=== PATIENT | male | born 1930 | race Caucasian/White ===

== ENCOUNTER 2018-07-04 10:18 | Inpatient (IN) | payer MEDICARE, MEDICAID ==
--- NOTE | 2018-07-04 10:37 | ED Physician Chart ---
ED Chief Complaint/HPI - Patient Information Date Seen:: 07/04/18 Time Seen:: 10:15 Chief Complaint:: Agitation History of Present Illness:: onset x 2 days of agitation and aggressive behavior; no report of trauma, LOC, ALOC, AMS, SIs, H/As, S/T, neck pain, C/P, SOB, Abd. Pain, A/N/V/D/C, fever, chills, or urinary s/s Historian:: Patient, EMS Review:: Nurse's Note Reviewed, Old Chart Reviewed, EMS run form Reviewed ED Review of Systems - Review of Systems General/Constitutional: No fever, No chills, No weight loss, No weakness, No diaphoresis, No edema, No loss of appetite Skin: No skin lesions, No rash, No bruising Head: No headache, No light-headedness Eyes: No loss of vision, No pain, No diplopia ENT: No earache, No nasal drainage, No sore throat, No tinnitus Neck: No neck pain, No swelling, No thyromegaly, No stiffness, No mass noted Cardio Vascular: No chest pain, No palpitations, No PND, No orthopnea, No edema Pulmonary: No SOB, No cough, No sputum, No wheezing GI: No nausea, No vomiting, No diarrhea, No pain, No melena, No hematochezia, No constipation, No hematemesis G/U: No dysuria, No frequency, No hematuria, No nacturia Musculoskeletal: No bone or joint pain, No back pain, No muscle pain Endocrine: No polyuria, No polydipsia Psychiatric: Prior psych history, Depression, Anxiety, No suicidal ideation, No homicidal ideation, No auditory hallucination, No visual hallucination Hematopoietic: No bruising, No lymphadenopathy Allergic/Immuno: No urticaria, No angioedema Neurological: No syncope, No focal symptoms, No weakness, No paresthesia, No headache, No seizure, No dizziness, No confusion, No vertigo ED Past Medical History - Past Medical History Obtainable: Yes Past Medical History: HTN, Dyslipidemia Family History: HTN Social History: Non Smoker, No Alcohol, No Drug Use, Single, Care Facility Surgical History: None Psychiatricy History: Depression, Bipolar Medication: Reviewed Family Medical History - Family Member Mother History Unknown: Yes ED Physical Exam - Physical Examination General/Constitutional: Awake, Well-developed, well-nourished, Alert, No distress, GCS 15, Non-toxic appearing, Ambulatory Head: Atraumatic Eyes: Lids, conjuctiva normal, PERRL, EOMI Skin: Nl inspection, No rash, No skin lesions, No ecchymosis, Well hydrated, No lymphadenopathy ENMT: External ears, nose nl, TM canals nl, Nasal exam nl, Lips, teeth, gums nl , Oropharynx nl, Tonsils nl Neck: Nontender, Full ROM w/o pain, No JVD, No nuchal rigidity, No bruit, No mass, No stridor Respiratory: Nl effort/Exclusion, Clear to Auscultation, No Wheeze/Rhonchi/Rales Cardio Vascular: RRR, No murmur, gallop, rubs, NL S1 S2, Carotid/Femoral/Distal pulses equal bilaterally GI: No tenderness/rebounding/guarding, No organomegaly, No hernia, Normal BS's, Nondistended, No mass/bruits, No McBurney tenderness : No CVA tenderness Extremities: No tenderness or effusion, Full ROM, normal strength in all extremities, No edema, Normal digits & nails Neuro/Psych: Alert/oriented, DTR's symmetric, Normal sensory exam, Normal motor strength, Judgement/insight normal, Mood normal, Normal gait, No focal deficits Other Neuro/Psych comments:: + Psychomotor Agitation; no SIs; Mood/Affect: Stable Misc: Normal back, No paraspinal tenderness ED Labs/Radiology/EKG Results - Lab Results Comments:: Reviewed - EKG Interpretations EKG Time:: 10:57 Rate & Rhythm: 72; SA Comments:: non-specific st-t changes ED Septic Shock - . Is Septic Shock (SBP<90, OR Lactate>4 mmol\L) present?: No ED Reassessment (Disposition) - Reassessment Reassessment Condition:: Improved - Diagnosis Diagnosis:: Dx: Agitation; Medical Clearance; Hypercalcemia; Bipolar Disorder - Aftercare/Follow up Instructions Aftercare/Follow-Up Instructions:: Counseled pt regarding lab results/diagnosis & need follow up, Counseled pt & family regarding lab results/diagnosis & need follow up - Patient Disposition Discharge/Transfer:: Acute Care w/in this hosp Admitted to:: [facility] Condition at Disposition:: Stable, Improved
[2018-07-04 11:13] LABS: % BASOPHILS 0.9 % (0.0-2.0); % EOSINOPHILS 5.9 % (0.0-5.0); % LYMPHOCYTES 30.5 % (20.0-50.0); % MONOCYTES 9.6 % (2.0-10.0); % NEUTROPHILS 53.1 % (40.0-80.0); BASOPHILE ABSOLUTE 0.1 Th/cumm (0-0.2); EOSINOPHILE ABSOLUTE 0.4 Th/cmm (0.1-0.4); HEMATOCRIT 44.7 % (41.0-60); HEMOGLOBIN 14.9 gm/dL (12-16); MEAN CELL VOLUME 82.7 fl (80-99); MEAN CORPUSCULAR HEMOGLOBIN 27.6 pg (27.0-31.0); MEAN CORPUSCULAR HGB CONC 33.3 pg (28.0-36.0); MEAN PLATELET VOLUME 9.7 fl; MONOCYTE ABSOLUTE 0.6 Th/cmm (0.3-1.0); NEUTROPHILE ABSOLUTE 3.6 Th/cmm (1.8-8.0); PLATELET COUNT 205 Th/cmm (150-400); RED CELL DISTRIBUTION WIDTH 13.6 % (11.5-20.0); WHITE BLOOD COUNT 6.7 Th/cmm (4.8-10.8)
[2018-07-04 11:23] LABS: ALB/GLOB RATIO 1.3 (1.0-1.8); ALBUMIN 3.6 gm/dL (4.2-5.5); ALKALINE PHOSPHATASE 51 U/L (34-104); ANION GAP 9.6 (7.0-16.0); BILIRUBIN,TOTAL 0.8 mg/dL (0.3-1.0); BUN - UREA NITROGEN 16 mg/dL (7-25); CALCIUM SERUM 10.4 mg/dL (8.6-10.3); CARBON DIOXIDE 24.5 mEq/L (21.0-31.0); CHLORIDE 106 mEq/L (98-107); CHOLESTEROL 146 mg/dL (<200); CREATININE - SERUM 0.7 mg/dL (0.7-1.3); GLUCOSE 103 mg/dL (70-105); HDL -HIGH DENSITY LIPOPROTEIN 50 mg/dL (23-92); POTASSIUM SERUM 4.1 mEq/L (3.5-5.1); SALICYLATES (ASPIRIN) < 25.0 mg/L (30.0-100.0); SGOT 10 U/L (13-39); SGPT/ALT 11 U/L (7-52); SODIUM SERUM 136 mEq/L (136-145); TOTAL PROTEIN,SERUM 6.4 gm/dL (6.0-8.3); TRIGLYCERIDES 72 mg/dL (<150)
[2018-07-04 11:34] LABS: URINE SOURCE CLEAN C
[2018-07-04 11:37] LABS: URINE BILIRUBIN NEGATIVE (NEGATIVE); URINE BLOOD NEGATIVE (NEGATIVE); URINE GLUCOSE (UA) NEGATIVE (NEGATIVE); URINE KETONE NEGATIVE (NEGATIVE); URINE LEUKOCYTE ESTERASE NEGATIVE (NEGATIVE); URINE NITRATE NEGATIVE (NEGATIVE); URINE PROTEIN NEGATIVE (NEGATIVE); URINE UROBILINOGEN 0.2 E.U./dL (0.2 - 1.0)
[2018-07-04 11:46] LABS: ACETAMINOPHEN < 10.0 ug/mL (10.0-30.0)
[2018-07-04 11:48] LABS: URINE CLARITY CLEAR (CLEAR); URINE COLOR YELLOW
[2018-07-04 11:50] LABS: AMPHETAMINE URINE NEGATIVE (NEGATIVE); BARBITURATES URINE NEGATIVE (NEGATIVE); BENZODIAZEPINES QUAL URINE NEGATIVE (NEGATIVE); CANNABINOID THC NEGATIVE (NEGATIVE); COCAINE METABOLITE QUAL URINE NEGATIVE (NEGATIVE); METHADONE URINE NEGATIVE (NEGATIVE); METHAMPHETAMINES QUAL URINE NEGATIVE (NEGATIVE); OPIATES (MORPHINE) QUAL. URINE NEGATIVE (NEGATIVE); PHENCYCLIDINE (PCP) URINE NEGATIVE (NEGATIVE); TRICYCLICS (TCA) QUAL. URINE POSITIVE (NEGATIVE); URINE MICROSCOPIC INDICATED? NO
--- NOTE | 2018-07-04 15:36 | History and Physical ---
History of Present Illness - HPI Chief Complaint: agitation HPI: This is a 88-year old male who is a intermediate resident admitted to the [facility] due to agitation. Vital Signs: Last Vital Signs Temp 97.6 F 07/04/18 12:18 Pulse 76 07/04/18 12:18 Resp 16 07/04/18 12:18 BP 133/76 07/04/18 12:18 Pulse Ox 99 07/04/18 12:18 Past Medical History Other History: HTN, Dyslipidemia Family Medical History - Family Member Mother History Unknown: Yes Social History Smoke: No Alcohol: None Drugs: None Lives: Jail - Medications Home Medications: Home Medication Medication Instructions Recorded Type Acetaminophen [Tylenol] 2 tab PO Q4HR PRN 07/04/18 History Atorvastatin Calcium [Lipitor] 10 mg PO DAILY 07/04/18 History Cranberry Conc/C/Bacill Coag 450 mg PO DAILY 07/04/18 History [Cranberry Tablet] Docusate Sodium [Colace] 100 mg PO BID PRN 07/04/18 History Finasteride [Proscar*] 5 mg PO DAILY 07/04/18 History Magnesium Hydroxide [Milk of 30 ml PO DAILY 07/04/18 History Magnesia] Magnesium Hydroxide [Milk of 30 ml PO HS PRN 07/04/18 History Magnesia] Melatonin 6 mg PO HS 07/04/18 History Multivit with Iron-Minerals 1 tab PO DAILY 07/04/18 History [Compete] QUEtiapine Fumarate [SEROquel] 50 mg PO DAILY 07/04/18 History QUEtiapine Fumarate [SEROquel] 75 mg PO HS 07/04/18 History Rivastigmine [Exelon] 4.6 mg TD DAILY 07/04/18 History Tamsulosin HCl [Flomax] 0.4 mg PO HS 07/04/18 History - Allergies Allergies/Adverse Reactions: Allergies Allergy/AdvReac Type Severity Reaction Status Date / Time No Known Allergies Allergy Verified 07/04/18 10:46 Review of Systems - Review of Systems Constitutional: Report: No Significant Eyes: Report: No Significant Respiratory: Report: No Significant Cardiovascular: Report: No Significant Neurological: Report: No Significant Physical Exam - Physical Exam HEENT: Report: Ears Nose Throat within normal limits Neck: Report: Within normal limits Cardiovascular Systems: Report: +s1/s2 noted, Regular, Rate and Rhythm Respiratory: Report: Breath Sounds are within normal limits Abdomen: Report: Non-tender to palpation Skin: Report: Color of skin is within normal limits, Warm, Dry Neuro/Psych: Report: Mood affect is within normal limits - Lab Results All Lab Results last 24 hours: Laboratory Results - last 24 hr 07/04/18 07/04/18 07/04/18 10:30 10:30 10:48 WBC 6.7 RBC 5.40 Hgb 14.9 Hct 44.7 MCV 82.7 MCH 27.6 MCHC Differential 33.3 RDW 13.6 Plt Count 205 MPV 9.7 Neutrophils % 53.1 Lymphocytes % 30.5 Monocytes % 9.6 Eosinophils % 5.9 H Basophils % 0.9 Sodium Potassium Chloride Carbon Dioxide Anion Gap BUN Creatinine Est GFR ( Amer) Est GFR (Non-Af Amer) BUN/Creatinine Ratio Glucose Calcium Total Bilirubin AST ALT Alkaline Phosphatase Troponin I Total Protein Albumin Globulin Albumin/Globulin Ratio Triglycerides Cholesterol LDL Cholesterol Direct HDL Cholesterol TSH Urine Source CLEAN C Urine Color YELLOW Urine Clarity CLEAR Urine pH 7.0 Ur Specific [place] 1.010 Urine Protein NEGATIVE Urine Glucose (UA) NEGATIVE Urine Ketones NEGATIVE Urine Blood NEGATIVE Urine Nitrate NEGATIVE Urine Bilirubin NEGATIVE Urine Urobilinogen 0.2 Ur Leukocyte Esterase NEGATIVE Salicylates Urine Opiates Screen NEGATIVE Urine Methadone Screen NEGATIVE Acetaminophen Ur Barbiturates Screen NEGATIVE Ur Tricyclics Screen POSITIVE H Ur Phencyclidine Scrn NEGATIVE Amphetamines Screen NEGATIVE U Methamphetamines Scrn NEGATIVE U Benzodiazepines Scrn NEGATIVE U Cocaine Metab Screen NEGATIVE U Cannabinoids Screen NEGATIVE Ethyl Alcohol 07/04/18 07/04/18 07/04/18 10:48 10:48 10:48 WBC RBC Hgb Hct MCV MCH MCHC Differential RDW Plt Count MPV Neutrophils % Lymphocytes % Monocytes % Eosinophils % Basophils % Sodium 136 Potassium 4.1 Chloride 106 Carbon Dioxide 24.5 Anion Gap 9.6 BUN 16 Creatinine 0.7 Est GFR ( Amer) TNP Est GFR (Non-Af Amer) TNP BUN/Creatinine Ratio 22.9 Glucose 103 Calcium 10.4 H Total Bilirubin 0.8 AST 10 L ALT 11 Alkaline Phosphatase 51 Troponin I < 0.01 L Total Protein 6.4 Albumin 3.6 L Globulin 2.8 Albumin/Globulin Ratio 1.3 Triglycerides 72 Cholesterol 146 LDL Cholesterol Direct 83 HDL Cholesterol 50 TSH 2.23 Urine Source Urine Color Urine Clarity Urine pH Ur Specific [place] Urine Protein Urine Glucose (UA) Urine Ketones Urine Blood Urine Nitrate Urine Bilirubin Urine Urobilinogen Ur Leukocyte Esterase Salicylates < 25.0 L Urine Opiates Screen Urine Methadone Screen Acetaminophen < 10.0 L Ur Barbiturates Screen Ur Tricyclics Screen Ur Phencyclidine Scrn Amphetamines Screen U Methamphetamines Scrn U Benzodiazepines Scrn U Cocaine Metab Screen U Cannabinoids Screen Ethyl Alcohol < 10 - Assessment Assessment: depression HTN Dyslipidemia - Plan Plan: fall precautions continue snf meds continue current plan of care
[2018-07-04 18:07] VITALS: BP 146/86
[2018-07-04] MEDS ORDERED: Magnesium Hydroxide (MOM) 30 mL UDC PO PRN (18:32)
[2018-07-04] MEDS ORDERED: Maalox 30 mL Cup PO PRN (18:32)
[2018-07-04 18:55] LABS: CHOLESTEROL 150 mg/dL (<200); HDL -HIGH DENSITY LIPOPROTEIN 53 mg/dL (23-92); TRIGLYCERIDES 74 mg/dL (<150)
--- NOTE | 2018-07-05 04:58 | Psychiatric Evaluation ---
DATE OF SERVICE: 07/04/2018 IDENTIFYING DATA: The patient is an 88-year-old resident of a long-term facility. JUSTIFICATION OF HOSPITALIZATION: The patient has been admitted over here for acute agitation, screaming and yelling behavior. CHIEF COMPLAINT: "I don't know." HISTORY OF PRESENT ILLNESS: This is the first psychiatric hospitalization to the geropsychiatric unit of the [facility] for this patient, who is reported to have been in a retirement and has been getting easily agitated. The patient could not be contained at a lower level of care and hence has been transferred over here for stabilization. Prior to the hospitalization, the patient has been on Seroquel, which he has been getting 50 mg in the morning and 75 at bedtime. Even with that medication, the patient has been having difficult time. PAST PSYCHIATRIC HISTORY: Details are not known. MEDICAL HISTORY AND PHYSICAL EXAMINATION: Requested to be done by Dr. Watters. SUBSTANCE ABUSE HISTORY: None. PHYSICAL OR SEXUAL ABUSE HISTORY: None. LEGAL PROBLEMS: None at this time. MENTAL STATUS EXAMINATION: The patient is an 88-year-old, looking his stated age, superficially cooperative. Eye contact is poor. Mood is noted to be irritable. Affect is constricted. The patient is getting easily frustrated. Speech is noted to be coherent and relevant, but the patient at times goes on tangent. The patient's attention span and concentration are noted to be poor. 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 The patient's behavior is likely a danger to self and others. DIAGNOSTIC IMPRESSION: AXIS I: Dementia and behavioral change, secondary trait. AXIS IB: Psychotic disorder, not otherwise specified. AXIS II: None. AXIS III: Hypertension and dyslipidemia. IMMEDIATE TREATMENT PLAN: The patient is going to be observed on inpatient unit, provided with supportive psychotherapy. The patient is going to be started with the Seroquel and Depakote. ESTIMATED LENGTH OF STAY: 5-7 days. DISCHARGE CRITERIA: When he no longer is a threat to self or others and be able to cope up with the stress. JOB# [id number]
[2018-07-05] MEDS: Multivitamin Tab PO SCH (09:29)
[2018-07-05] MEDS ORDERED: Magnesium Hydroxide (MOM) 30 mL UDC PO PRN (12:02)
--- NOTE | 2018-07-05 12:11 | Consultation ---
DATE OF CONSULTATION: 07/05/2018 REFERRING PHYSICIAN: Candi Vaz MD TYPE OF CONSULTATION: Psychology. HISTORY OF PRESENT ILLNESS: The patient is an 88-year-old male. The patient is being admitted due to agitation as well as screaming and yelling episodes and unredirectable behavior. The following is by record review and by the patient's self-report. The patient is a resident of [facility] in [place]. The staff at the patient's facility reported that he had become easily agitated with yelling episodes. The patient presents as angry as well as guarded and suspicious. The patient denied any suicidal or homicidal ideation, plan or intention at the time of this clinical interview. PAST MEDICAL HISTORY: Please see history and physical by Dr. Watters. PAST PSYCHIATRIC HISTORY: Records are unavailable. Details are unknown. SUBSTANCE ABUSE HISTORY: The patient did not answer these questions. PSYCHOSOCIAL HISTORY: The patient did not answer these questions. The patient did not answer the questions about occupational or educational history or lutheran affiliation. He did not answer questions about history of physical or sexual abuse or current legal problems. The patient did not answer questions about family support or others that are involved in his care. MENTAL STATUS EXAMINATION: The patient appears to be his stated age. The patient's attitude is uncooperative. Eye contact is poor. Speech is loud. Mood is irritable. Affect is constricted. The patient's behavior is easily agitated. The patient is becoming frustrated during the mental status examination. There is some tangential thought present, however the patient was cognitively redirectable at times. The patient denied any suicidal ideation, plan or intention. He denies any auditory or visual hallucinations or any delusions. Impulse control is impaired. Concentration is poor. The patient did not participate in the memory assessment. Sensorium is alert and oriented to self only. The patient did not participate in the interpretation of proverbs. Insight is poor. Judgment is impaired. DIAGNOSTIC IMPRESSION: AXIS I: 1. Dementia with behavioral disturbance. 2. Psychotic disorder, not otherwise specified. AXIS II: Deferred. AXIS III: Per Dr. Watters. TREATMENT PLAN: The patient has been seen by Dr. Vaz for psychiatric evaluation and for the management of the patient's psychotropic medications. We will provide supportive psychotherapy to include reality orientation, differentiation and integration. We will provide de-escalation as well as limit setting and anger management. We will encourage the patient to be able to demonstrate emotional and self-regulation prior to his discharge. We will provide coping strategies for phase of life issues. We will provide stress management to assist the patient to increase his frustration tolerance. The attending psychiatrist has started the patient on Seroquel and Depakote. We will provide motivational enhancement for the patient to become compliant and stay compliant with all aspects of his care and treatment. We will encourage the patient to verbalize his concerns versus acting out. Thank you, Dr. Vaz for this consult and the opportunity to participate in this patient's care. JOB# [id number] ILEANA
--- NOTE | 2018-07-05 12:43 | Internal Medicine Prog Note ---
Internal Medicine Subjective - Subjective Patient seen and examined:: with staff, chart reviewed Patient is:: awake, verbal, interactive Patient Complaints of:: unable to sleep Per staff patient has:: no adverse event, no episodes of fall, tolerating meds Internal Medicine Objective - Results Result Diagrams: 07/04/18 10:48 07/04/18 10:48 Recent Labs: Laboratory Last Values WBC 6.7 Th/cmm (4.8-10.8) 07/04/18 10:48 RBC 5.40 Mil/cmm (3.80-5.80) 07/04/18 10:48 Hgb 14.9 gm/dL (12-16) 07/04/18 10:48 Hct 44.7 % (41.0-60) 07/04/18 10:48 MCV 82.7 fl (80-99) 07/04/18 10:48 MCH 27.6 pg (27.0-31.0) 07/04/18 10:48 MCHC Differential 33.3 pg (28.0-36.0) 07/04/18 10:48 RDW 13.6 % (11.5-20.0) 07/04/18 10:48 Plt Count 205 Th/cmm (150-400) 07/04/18 10:48 MPV 9.7 fl 07/04/18 10:48 Neutrophils % 53.1 % (40.0-80.0) 07/04/18 10:48 Lymphocytes % 30.5 % (20.0-50.0) 07/04/18 10:48 Monocytes % 9.6 % (2.0-10.0) 07/04/18 10:48 Eosinophils % 5.9 % (0.0-5.0) H 07/04/18 10:48 Basophils % 0.9 % (0.0-2.0) 07/04/18 10:48 Sodium 136 mEq/L (136-145) 07/04/18 10:48 Potassium 4.1 mEq/L (3.5-5.1) 07/04/18 10:48 Chloride 106 mEq/L (98-107) 07/04/18 10:48 Carbon Dioxide 24.5 mEq/L (21.0-31.0) 07/04/18 10:48 Anion Gap 9.6 (7.0-16.0) 07/04/18 10:48 BUN 16 mg/dL (7-25) 07/04/18 10:48 Creatinine 0.7 mg/dL (0.7-1.3) 07/04/18 10:48 Est GFR ( Amer) TNP 07/04/18 10:48 Est GFR (Non-Af Amer) TNP 07/04/18 10:48 BUN/Creatinine Ratio 22.9 07/04/18 10:48 Glucose 103 mg/dL (70-105) 07/04/18 10:48 Calcium 10.4 mg/dL (8.6-10.3) H 07/04/18 10:48 Total Bilirubin 0.8 mg/dL (0.3-1.0) 07/04/18 10:48 AST 10 U/L (13-39) L 07/04/18 10:48 ALT 11 U/L (7-52) 07/04/18 10:48 Alkaline Phosphatase 51 U/L (34-104) 07/04/18 10:48 Troponin I < 0.01 ng/mL (0.01-0.05) L 07/04/18 10:48 Total Protein 6.4 gm/dL (6.0-8.3) 07/04/18 10:48 Albumin 3.6 gm/dL (4.2-5.5) L 07/04/18 10:48 Globulin 2.8 gm/dL 07/04/18 10:48 Albumin/Globulin Ratio 1.3 (1.0-1.8) 07/04/18 10:48 Triglycerides 74 mg/dL (<150) 07/04/18 10:48 Cholesterol 150 mg/dL (<200) 07/04/18 10:48 LDL Cholesterol Direct 85 mg/dL (75-193) 07/04/18 10:48 HDL Cholesterol 53 mg/dL (23-92) 07/04/18 10:48 TSH 2.23 uIU/ml (0.34-5.60) 07/04/18 10:48 Urine Source CLEAN C 07/04/18 10:30 Urine Color YELLOW 07/04/18 10:30 Urine Clarity CLEAR (CLEAR) 07/04/18 10:30 Urine pH 7.0 (4.6 - 8.0) 07/04/18 10:30 Ur Specific [place] 1.010 (1.005-1.030) 07/04/18 10:30 Urine Protein NEGATIVE mg/dL (NEGATIVE) 07/04/18 10:30 Urine Glucose (UA) NEGATIVE mg/dL (NEGATIVE) 07/04/18 10:30 Urine Ketones NEGATIVE mg/dL (NEGATIVE) 07/04/18 10:30 Urine Blood NEGATIVE (NEGATIVE) 07/04/18 10:30 Urine Nitrate NEGATIVE (NEGATIVE) 07/04/18 10:30 Urine Bilirubin NEGATIVE (NEGATIVE) 07/04/18 10:30 Urine Urobilinogen 0.2 E.U./dL (0.2 - 1.0) 07/04/18 10:30 Ur Leukocyte Esterase NEGATIVE (NEGATIVE) 07/04/18 10:30 Salicylates < 25.0 mg/L (30.0-100.0) L 07/04/18 10:48 Urine Opiates Screen NEGATIVE (NEGATIVE) 07/04/18 10:30 Urine Methadone Screen NEGATIVE (NEGATIVE) 07/04/18 10:30 Acetaminophen < 10.0 ug/mL (10.0-30.0) L 07/04/18 10:48 Ur Barbiturates Screen NEGATIVE (NEGATIVE) 07/04/18 10:30 Ur Tricyclics Screen POSITIVE (NEGATIVE) H 07/04/18 10:30 Ur Phencyclidine Scrn NEGATIVE (NEGATIVE) 07/04/18 10:30 Amphetamines Screen NEGATIVE (NEGATIVE) 07/04/18 10:30 U Methamphetamines Scrn NEGATIVE (NEGATIVE) 07/04/18 10:30 U Benzodiazepines Scrn NEGATIVE (NEGATIVE) 07/04/18 10:30 U Cocaine Metab Screen NEGATIVE (NEGATIVE) 07/04/18 10:30 U Cannabinoids Screen NEGATIVE (NEGATIVE) 07/04/18 10:30 Ethyl Alcohol < 10 mg/dL (0-10) 07/04/18 10:48 - Physical Exam Vitals and I&O: Vital Signs Temp 98 F 07/04/18 20:00 Pulse 61 07/04/18 20:00 Resp 20 07/04/18 20:00 BP 112/67 07/04/18 20:00 Pulse Ox 96 07/04/18 20:00 Intake & Output 07/04/18 07/05/18 07/05/18 18:59 06:59 18:59 Weight (lbs) 81.647 kg Other: Weight Source Estimated Active Medications: Current Medications Acetaminophen (Tylenol) 650 mg PO Q4HR PRN PRN Reason: Mild Pain / Temp above 100 Stop: 09/02/18 18:31 Acetaminophen (Tylenol) 650 mg PO Q4HR PRN PRN Reason: Pain (Mild) Stop: 09/03/18 12:01 Al Hydrox/Mg Hydrox/Simethicone (Maalox) 30 ml PO Q4HR PRN PRN Reason: GI DISTRESS Stop: 09/02/18 18:31 Atorvastatin Calcium (Lipitor) 10 mg PO DAILY CECILIA; Protocol Stop: 09/04/18 08:59 Divalproex Sodium (Depakote Dr) 125 mg PO Q12HR CECILIA; Protocol Stop: 09/02/18 20:59 Last Admin: 07/05/18 09:29 Dose: 125 mg Docusate Sodium (Colace) 100 mg PO BID PRN PRN Reason: Constipation Stop: 09/03/18 12:01 Finasteride (Proscar) 5 mg PO DAILY CECILIA; Protocol Stop: 09/04/18 08:59 Lorazepam (Ativan) 0.5 mg PO Q4HR PRN; Protocol PRN Reason: Agitation Stop: 08/03/18 18:31 Magnesium Hydroxide (Milk Of Magnesia) 30 ml PO HS PRN PRN Reason: Constipation Magnesium Hydroxide (Milk Of Magnesia) 30 ml PO HS PRN PRN Reason: Constipation Stop: 09/03/18 12:01 Multivitamins/Vitamin C (Theragran) 1 tab PO DAILY CECILIA Stop: 09/03/18 08:59 Last Admin: 07/05/18 09:29 Dose: 1 tab Quetiapine Fumarate (Seroquel) 50 mg PO HS CECILIA; Protocol Stop: 09/02/18 20:59 Last Admin: 07/04/18 20:50 Dose: 50 mg Rivastigmine (Exelon 4.6 Mg/24 Hr Tdm) 1 patch TD DAILY CECILIA Stop: 09/04/18 08:59 Tamsulosin HCl (Flomax) 0.4 mg PO HS CECILIA Stop: 09/03/18 20:59 Zolpidem Tartrate (Ambien) 5 mg PO HS PRN PRN Reason: Insomnia Stop: 09/02/18 18:31 General: weak HEENT: NC/AT, PERRLA Neck: Supple Lungs: CTAB Cardiovascular: RRR, Normal S1, Normal S2, with murmur Abdomen: soft, positive bowel sound Extremities: excoriation Neurological: no change Internal Medicine Assmt/Plan - Assessment Assessment: Assessment: depression HTN Dyslipidemia - Plan Plan: fall precautions continue snf meds continue current plan of care - Plan Plan: fall precaution cpm james rn
--- NOTE | 2018-07-06 07:12 | Progress Notes ---
DATE: 07/05/2018 PSYCHIATRIC PROGRESS NOTE SUBJECTIVE: Staff was spoken to. The patient is interviewed. Mood is noted to be irritable. Affect is constricted. Insight and judgment are noted to be still impaired. Impulse control is noted to be limited. The patient is very demanding and has been agitated. Coping skills at this time are noted to be poor. No side effects to the medications are noted. The patient has to be given a dose of the Haldol because of his out of control behavior. The patient is currently maintained on 50 mg of the Seroquel at night time and Depakote has been given 125 mg twice a day in view of his mood swings. ASSESSMENT: The patient is still having the acute mood swings. PLAN: To continue the patient with the above medications and followup. [facility]# [id number]
[2018-07-06] MEDS: Multivitamin Tab PO SCH (08:24)
[2018-07-06] MEDS: Rivastigmine 4.6 mg/24 hr Tdm TD SCH (08:24)
[2018-07-06] MEDS: Atorvastatin Calcium 10 MG TAB PO SCH (08:24)
[2018-07-06] MEDS ORDERED: MULTIVIT WITH IRON MINERALS PO SCH (09:00)
[2018-07-06] MEDS ORDERED: RIVASTIGMINE 4.6 MG TD SCH (09:00)
--- NOTE | 2018-07-06 12:36 | Internal Medicine Prog Note ---
Internal Medicine Subjective - Subjective Patient seen and examined:: with staff, chart reviewed Patient is:: awake, verbal, interactive Patient Complaints of:: unable to sleep Per staff patient has:: no adverse event, no episodes of fall, tolerating meds Internal Medicine Objective - Results Result Diagrams: 07/04/18 10:48 07/04/18 10:48 Recent Labs: Laboratory Last Values WBC 6.7 Th/cmm (4.8-10.8) 07/04/18 10:48 RBC 5.40 Mil/cmm (3.80-5.80) 07/04/18 10:48 Hgb 14.9 gm/dL (12-16) 07/04/18 10:48 Hct 44.7 % (41.0-60) 07/04/18 10:48 MCV 82.7 fl (80-99) 07/04/18 10:48 MCH 27.6 pg (27.0-31.0) 07/04/18 10:48 MCHC Differential 33.3 pg (28.0-36.0) 07/04/18 10:48 RDW 13.6 % (11.5-20.0) 07/04/18 10:48 Plt Count 205 Th/cmm (150-400) 07/04/18 10:48 MPV 9.7 fl 07/04/18 10:48 Neutrophils % 53.1 % (40.0-80.0) 07/04/18 10:48 Lymphocytes % 30.5 % (20.0-50.0) 07/04/18 10:48 Monocytes % 9.6 % (2.0-10.0) 07/04/18 10:48 Eosinophils % 5.9 % (0.0-5.0) H 07/04/18 10:48 Basophils % 0.9 % (0.0-2.0) 07/04/18 10:48 Sodium 136 mEq/L (136-145) 07/04/18 10:48 Potassium 4.1 mEq/L (3.5-5.1) 07/04/18 10:48 Chloride 106 mEq/L (98-107) 07/04/18 10:48 Carbon Dioxide 24.5 mEq/L (21.0-31.0) 07/04/18 10:48 Anion Gap 9.6 (7.0-16.0) 07/04/18 10:48 BUN 16 mg/dL (7-25) 07/04/18 10:48 Creatinine 0.7 mg/dL (0.7-1.3) 07/04/18 10:48 Est GFR ( Amer) TNP 07/04/18 10:48 Est GFR (Non-Af Amer) TNP 07/04/18 10:48 BUN/Creatinine Ratio 22.9 07/04/18 10:48 Glucose 103 mg/dL (70-105) 07/04/18 10:48 Calcium 10.4 mg/dL (8.6-10.3) H 07/04/18 10:48 Total Bilirubin 0.8 mg/dL (0.3-1.0) 07/04/18 10:48 AST 10 U/L (13-39) L 07/04/18 10:48 ALT 11 U/L (7-52) 07/04/18 10:48 Alkaline Phosphatase 51 U/L (34-104) 07/04/18 10:48 Troponin I < 0.01 ng/mL (0.01-0.05) L 07/04/18 10:48 Total Protein 6.4 gm/dL (6.0-8.3) 07/04/18 10:48 Albumin 3.6 gm/dL (4.2-5.5) L 07/04/18 10:48 Globulin 2.8 gm/dL 07/04/18 10:48 Albumin/Globulin Ratio 1.3 (1.0-1.8) 07/04/18 10:48 Triglycerides 74 mg/dL (<150) 07/04/18 10:48 Cholesterol 150 mg/dL (<200) 07/04/18 10:48 LDL Cholesterol Direct 85 mg/dL (75-193) 07/04/18 10:48 HDL Cholesterol 53 mg/dL (23-92) 07/04/18 10:48 TSH 2.23 uIU/ml (0.34-5.60) 07/04/18 10:48 Urine Source CLEAN C 07/04/18 10:30 Urine Color YELLOW 07/04/18 10:30 Urine Clarity CLEAR (CLEAR) 07/04/18 10:30 Urine pH 7.0 (4.6 - 8.0) 07/04/18 10:30 Ur Specific [place] 1.010 (1.005-1.030) 07/04/18 10:30 Urine Protein NEGATIVE mg/dL (NEGATIVE) 07/04/18 10:30 Urine Glucose (UA) NEGATIVE mg/dL (NEGATIVE) 07/04/18 10:30 Urine Ketones NEGATIVE mg/dL (NEGATIVE) 07/04/18 10:30 Urine Blood NEGATIVE (NEGATIVE) 07/04/18 10:30 Urine Nitrate NEGATIVE (NEGATIVE) 07/04/18 10:30 Urine Bilirubin NEGATIVE (NEGATIVE) 07/04/18 10:30 Urine Urobilinogen 0.2 E.U./dL (0.2 - 1.0) 07/04/18 10:30 Ur Leukocyte Esterase NEGATIVE (NEGATIVE) 07/04/18 10:30 Salicylates < 25.0 mg/L (30.0-100.0) L 07/04/18 10:48 Urine Opiates Screen NEGATIVE (NEGATIVE) 07/04/18 10:30 Urine Methadone Screen NEGATIVE (NEGATIVE) 07/04/18 10:30 Acetaminophen < 10.0 ug/mL (10.0-30.0) L 07/04/18 10:48 Ur Barbiturates Screen NEGATIVE (NEGATIVE) 07/04/18 10:30 Ur Tricyclics Screen POSITIVE (NEGATIVE) H 07/04/18 10:30 Ur Phencyclidine Scrn NEGATIVE (NEGATIVE) 07/04/18 10:30 Amphetamines Screen NEGATIVE (NEGATIVE) 07/04/18 10:30 U Methamphetamines Scrn NEGATIVE (NEGATIVE) 07/04/18 10:30 U Benzodiazepines Scrn NEGATIVE (NEGATIVE) 07/04/18 10:30 U Cocaine Metab Screen NEGATIVE (NEGATIVE) 07/04/18 10:30 U Cannabinoids Screen NEGATIVE (NEGATIVE) 07/04/18 10:30 Ethyl Alcohol < 10 mg/dL (0-10) 07/04/18 10:48 RPR NONREACTIVE (NONREACTIVE) 07/04/18 10:48 - Physical Exam Vitals and I&O: Vital Signs Temp 97.7 F 07/06/18 04:43 Pulse 68 07/06/18 04:43 Resp 18 07/06/18 04:43 BP 127/74 07/06/18 04:43 Pulse Ox 97 07/06/18 04:43 Intake & Output 07/05/18 07/06/18 07/06/18 18:59 06:59 18:59 Intake Total 1400 480 Balance 1400 480 Intake: Oral 1400 480 Other: # Voids 4 2 # Bowel Movements 0 Active Medications: Current Medications Acetaminophen (Tylenol) 650 mg PO Q4HR PRN PRN Reason: Mild Pain / Temp above 100 Stop: 09/02/18 18:31 Acetaminophen (Tylenol) 650 mg PO Q4HR PRN PRN Reason: Pain (Mild) Stop: 09/03/18 12:01 Al Hydrox/Mg Hydrox/Simethicone (Maalox) 30 ml PO Q4HR PRN PRN Reason: GI DISTRESS Stop: 09/02/18 18:31 Atorvastatin Calcium (Lipitor) 10 mg PO DAILY CECIILA; Protocol Stop: 09/04/18 08:59 Last Admin: 07/06/18 08:24 Dose: 10 mg Divalproex Sodium (Depakote Dr) 125 mg PO Q12HR CECILIA; Protocol Stop: 09/02/18 20:59 Last Admin: 07/06/18 08:23 Dose: 125 mg Docusate Sodium (Colace) 100 mg PO BID PRN PRN Reason: Constipation Stop: 09/03/18 12:01 Finasteride (Proscar) 5 mg PO DAILY CECILIA; Protocol Stop: 09/04/18 08:59 Last Admin: 07/06/18 08:24 Dose: 5 mg Lorazepam (Ativan) 0.5 mg PO Q4HR PRN; Protocol PRN Reason: Agitation Stop: 08/03/18 18:31 Magnesium Hydroxide (Milk Of Magnesia) 30 ml PO HS PRN PRN Reason: Constipation Magnesium Hydroxide (Milk Of Magnesia) 30 ml PO HS PRN PRN Reason: Constipation Stop: 09/03/18 12:01 Multivitamins/Vitamin C (Theragran) 1 tab PO DAILY CECILIA Stop: 09/03/18 08:59 Last Admin: 07/06/18 08:24 Dose: 1 tab Quetiapine Fumarate (Seroquel) 50 mg PO HS CECILIA; Protocol Stop: 09/02/18 20:59 Last Admin: 07/05/18 21:28 Dose: 50 mg Rivastigmine (Exelon 4.6 Mg/24 Hr Tdm) 1 patch TD DAILY CECILIA Stop: 09/04/18 08:59 Last Admin: 07/06/18 08:24 Dose: 1 patch Tamsulosin HCl (Flomax) 0.4 mg PO HS CECILIA Stop: 09/03/18 20:59 Last Admin: 07/05/18 21:28 Dose: 0.4 mg Zolpidem Tartrate (Ambien) 5 mg PO HS PRN PRN Reason: Insomnia Stop: 09/02/18 18:31 General: weak HEENT: NC/AT, PERRLA Neck: Supple Lungs: CTAB Cardiovascular: RRR, Normal S1, Normal S2, with murmur Abdomen: soft, positive bowel sound Extremities: excoriation Neurological: no change Internal Medicine Assmt/Plan - Assessment Assessment: Assessment: depression HTN Dyslipidemia - Plan Plan: fall precautions continue snf meds continue current plan of care - Plan Plan: fall precaution cpm james rn
[2018-07-07] MEDS: Multivitamin Tab PO SCH ×2 (08:58→12:05)
[2018-07-07] MEDS: Rivastigmine 4.6 mg/24 hr Tdm TD SCH ×2 (08:58→17:33)
[2018-07-07] MEDS: Atorvastatin Calcium 10 MG TAB PO SCH ×2 (08:58→12:05)
--- NOTE | 2018-07-07 12:13 | Progress Notes ---
DATE: 07/06/2018 PSYCHIATRIC PROGRESS NOTE SUBJECTIVE: Staff was spoken to. The patient is interviewed. Mood is noted to be dysphoric. Coping skill are noted to be very poor. The patient is screaming and yelling. Insight and judgment are noted to be still impaired. Impulse control is noted to be poor. The patient is currently on Seroquel 50 mg at bedtime. In view of the mood swings, the patient has been placed on 125 mg twice a day of Depakote and he has been able to tolerate the medications. No side effects to the medications are noted. ASSESSMENT: The patient is still having acute mood swings. PLAN: To continue the patient with supportive therapy. I encouraged the patient to verbalize the concerns rather than to act out. JOB# [id number]
--- NOTE | 2018-07-07 14:26 | Progress Notes ---
DATE: 07/07/2018 PSYCHIATRIC PROGRESS NOTE SUBJECTIVE: Staff was spoken to. The patient is interviewed. Mood is noted to be irritable. Affect is constricted. The patient has been losing the temper. The patient needs to be redirected. The patient has both short-term and long-term memory deficits. No side effects to the medications are noted at this time and the patient is to have 125 mg of the Depakote, which is going to be increased to 250 mg and follow. The patient is going to be followed up with the supportive therapy. ASSESSMENT: The patient is still impulsive and having mood swings. PLAN: To continue the patient. The patient is going to be followed up with a higher dose on the Depakote. JOB# [id number]
--- NOTE | 2018-07-07 14:44 | Internal Medicine Prog Note ---
Internal Medicine Subjective - Subjective Patient seen and examined:: with staff, chart reviewed Patient is:: awake, verbal, interactive Patient Complaints of:: unable to sleep Per staff patient has:: no adverse event, no episodes of fall, tolerating meds Internal Medicine Objective - Results Result Diagrams: 07/04/18 10:48 07/04/18 10:48 Recent Labs: Laboratory Last Values WBC 6.7 Th/cmm (4.8-10.8) 07/04/18 10:48 RBC 5.40 Mil/cmm (3.80-5.80) 07/04/18 10:48 Hgb 14.9 gm/dL (12-16) 07/04/18 10:48 Hct 44.7 % (41.0-60) 07/04/18 10:48 MCV 82.7 fl (80-99) 07/04/18 10:48 MCH 27.6 pg (27.0-31.0) 07/04/18 10:48 MCHC Differential 33.3 pg (28.0-36.0) 07/04/18 10:48 RDW 13.6 % (11.5-20.0) 07/04/18 10:48 Plt Count 205 Th/cmm (150-400) 07/04/18 10:48 MPV 9.7 fl 07/04/18 10:48 Neutrophils % 53.1 % (40.0-80.0) 07/04/18 10:48 Lymphocytes % 30.5 % (20.0-50.0) 07/04/18 10:48 Monocytes % 9.6 % (2.0-10.0) 07/04/18 10:48 Eosinophils % 5.9 % (0.0-5.0) H 07/04/18 10:48 Basophils % 0.9 % (0.0-2.0) 07/04/18 10:48 Sodium 136 mEq/L (136-145) 07/04/18 10:48 Potassium 4.1 mEq/L (3.5-5.1) 07/04/18 10:48 Chloride 106 mEq/L (98-107) 07/04/18 10:48 Carbon Dioxide 24.5 mEq/L (21.0-31.0) 07/04/18 10:48 Anion Gap 9.6 (7.0-16.0) 07/04/18 10:48 BUN 16 mg/dL (7-25) 07/04/18 10:48 Creatinine 0.7 mg/dL (0.7-1.3) 07/04/18 10:48 Est GFR ( Amer) TNP 07/04/18 10:48 Est GFR (Non-Af Amer) TNP 07/04/18 10:48 BUN/Creatinine Ratio 22.9 07/04/18 10:48 Glucose 103 mg/dL (70-105) 07/04/18 10:48 Calcium 10.4 mg/dL (8.6-10.3) H 07/04/18 10:48 Total Bilirubin 0.8 mg/dL (0.3-1.0) 07/04/18 10:48 AST 10 U/L (13-39) L 07/04/18 10:48 ALT 11 U/L (7-52) 07/04/18 10:48 Alkaline Phosphatase 51 U/L (34-104) 07/04/18 10:48 Troponin I < 0.01 ng/mL (0.01-0.05) L 07/04/18 10:48 Total Protein 6.4 gm/dL (6.0-8.3) 07/04/18 10:48 Albumin 3.6 gm/dL (4.2-5.5) L 07/04/18 10:48 Globulin 2.8 gm/dL 07/04/18 10:48 Albumin/Globulin Ratio 1.3 (1.0-1.8) 07/04/18 10:48 Triglycerides 74 mg/dL (<150) 07/04/18 10:48 Cholesterol 150 mg/dL (<200) 07/04/18 10:48 LDL Cholesterol Direct 85 mg/dL (75-193) 07/04/18 10:48 HDL Cholesterol 53 mg/dL (23-92) 07/04/18 10:48 TSH 2.23 uIU/ml (0.34-5.60) 07/04/18 10:48 Urine Source CLEAN C 07/04/18 10:30 Urine Color YELLOW 07/04/18 10:30 Urine Clarity CLEAR (CLEAR) 07/04/18 10:30 Urine pH 7.0 (4.6 - 8.0) 07/04/18 10:30 Ur Specific [place] 1.010 (1.005-1.030) 07/04/18 10:30 Urine Protein NEGATIVE mg/dL (NEGATIVE) 07/04/18 10:30 Urine Glucose (UA) NEGATIVE mg/dL (NEGATIVE) 07/04/18 10:30 Urine Ketones NEGATIVE mg/dL (NEGATIVE) 07/04/18 10:30 Urine Blood NEGATIVE (NEGATIVE) 07/04/18 10:30 Urine Nitrate NEGATIVE (NEGATIVE) 07/04/18 10:30 Urine Bilirubin NEGATIVE (NEGATIVE) 07/04/18 10:30 Urine Urobilinogen 0.2 E.U./dL (0.2 - 1.0) 07/04/18 10:30 Ur Leukocyte Esterase NEGATIVE (NEGATIVE) 07/04/18 10:30 Salicylates < 25.0 mg/L (30.0-100.0) L 07/04/18 10:48 Urine Opiates Screen NEGATIVE (NEGATIVE) 07/04/18 10:30 Urine Methadone Screen NEGATIVE (NEGATIVE) 07/04/18 10:30 Acetaminophen < 10.0 ug/mL (10.0-30.0) L 07/04/18 10:48 Ur Barbiturates Screen NEGATIVE (NEGATIVE) 07/04/18 10:30 Ur Tricyclics Screen POSITIVE (NEGATIVE) H 07/04/18 10:30 Ur Phencyclidine Scrn NEGATIVE (NEGATIVE) 07/04/18 10:30 Amphetamines Screen NEGATIVE (NEGATIVE) 07/04/18 10:30 U Methamphetamines Scrn NEGATIVE (NEGATIVE) 07/04/18 10:30 U Benzodiazepines Scrn NEGATIVE (NEGATIVE) 07/04/18 10:30 U Cocaine Metab Screen NEGATIVE (NEGATIVE) 07/04/18 10:30 U Cannabinoids Screen NEGATIVE (NEGATIVE) 07/04/18 10:30 Ethyl Alcohol < 10 mg/dL (0-10) 07/04/18 10:48 RPR NONREACTIVE (NONREACTIVE) 07/04/18 10:48 - Physical Exam Vitals and I&O: Vital Signs Temp 97.4 F 07/07/18 06:55 Pulse 80 07/07/18 06:55 Resp 19 07/07/18 06:55 BP 126/80 07/07/18 06:55 Pulse Ox 96 07/07/18 06:55 Intake & Output 07/06/18 07/07/18 07/07/18 18:59 06:59 18:59 Intake Total 1200 240 Balance 1200 240 Intake: Oral 1200 240 Other: # Voids 1 # Bowel Movements 1 Active Medications: Current Medications Acetaminophen (Tylenol) 650 mg PO Q4HR PRN PRN Reason: Mild Pain / Temp above 100 Stop: 09/02/18 18:31 Acetaminophen (Tylenol) 650 mg PO Q4HR PRN PRN Reason: Pain (Mild) Stop: 09/03/18 12:01 Al Hydrox/Mg Hydrox/Simethicone (Maalox) 30 ml PO Q4HR PRN PRN Reason: GI DISTRESS Stop: 09/02/18 18:31 Atorvastatin Calcium (Lipitor) 10 mg PO DAILY CECILIA; Protocol Stop: 09/04/18 08:59 Last Admin: 07/07/18 12:05 Dose: Not Given Divalproex Sodium (Depakote Dr) 250 mg PO Q12HR CECILIA; Protocol Stop: 09/05/18 20:59 Docusate Sodium (Colace) 100 mg PO BID PRN PRN Reason: Constipation Stop: 09/03/18 12:01 Finasteride (Proscar) 5 mg PO DAILY CECILIA; Protocol Stop: 09/04/18 08:59 Last Admin: 07/07/18 12:05 Dose: Not Given Lorazepam (Ativan) 0.5 mg PO Q4HR PRN; Protocol PRN Reason: Agitation Stop: 08/03/18 18:31 Last Admin: 07/07/18 11:36 Dose: 0.5 mg Magnesium Hydroxide (Milk Of Magnesia) 30 ml PO HS PRN PRN Reason: Constipation Magnesium Hydroxide (Milk Of Magnesia) 30 ml PO HS PRN PRN Reason: Constipation Stop: 09/03/18 12:01 Multivitamins/Vitamin C (Theragran) 1 tab PO DAILY CECILIA Stop: 09/03/18 08:59 Last Admin: 07/07/18 12:05 Dose: Not Given Quetiapine Fumarate (Seroquel) 50 mg PO HS CECILIA; Protocol Stop: 09/02/18 20:59 Last Admin: 07/06/18 20:11 Dose: Not Given Rivastigmine (Exelon 4.6 Mg/24 Hr Tdm) 1 patch TD DAILY CECILIA Stop: 09/04/18 08:59 Last Admin: 07/07/18 08:58 Dose: 1 patch Tamsulosin HCl (Flomax) 0.4 mg PO HS CECILIA Stop: 09/03/18 20:59 Last Admin: 07/06/18 20:11 Dose: Not Given Zolpidem Tartrate (Ambien) 5 mg PO HS PRN PRN Reason: Insomnia Stop: 09/02/18 18:31 General: weak HEENT: NC/AT, PERRLA Neck: Supple Lungs: CTAB Cardiovascular: RRR, Normal S1, Normal S2, with murmur Abdomen: soft, positive bowel sound Extremities: excoriation Neurological: no change Internal Medicine Assmt/Plan - Assessment Assessment: Assessment: depression HTN Dyslipidemia - Plan Plan: fall precautions continue snf meds continue current plan of care - Plan Plan: fall precaution cpm james rn
[2018-07-08] MEDS: Rivastigmine 4.6 mg/24 hr Tdm TD SCH ×2 (09:30→09:39)
[2018-07-08] MEDS: Multivitamin Tab PO SCH ×2 (09:31→09:39)
[2018-07-08] MEDS: Atorvastatin Calcium 10 MG TAB PO SCH ×2 (09:31→09:40)
--- NOTE | 2018-07-08 11:34 | Internal Medicine Prog Note ---
Internal Medicine Subjective - Subjective Patient seen and examined:: with staff, chart reviewed Patient is:: awake, verbal, interactive Patient Complaints of:: unable to sleep Per staff patient has:: no adverse event, no episodes of fall, tolerating meds Internal Medicine Objective - Results Result Diagrams: 07/04/18 10:48 07/04/18 10:48 Recent Labs: Laboratory Last Values WBC 6.7 Th/cmm (4.8-10.8) 07/04/18 10:48 RBC 5.40 Mil/cmm (3.80-5.80) 07/04/18 10:48 Hgb 14.9 gm/dL (12-16) 07/04/18 10:48 Hct 44.7 % (41.0-60) 07/04/18 10:48 MCV 82.7 fl (80-99) 07/04/18 10:48 MCH 27.6 pg (27.0-31.0) 07/04/18 10:48 MCHC Differential 33.3 pg (28.0-36.0) 07/04/18 10:48 RDW 13.6 % (11.5-20.0) 07/04/18 10:48 Plt Count 205 Th/cmm (150-400) 07/04/18 10:48 MPV 9.7 fl 07/04/18 10:48 Neutrophils % 53.1 % (40.0-80.0) 07/04/18 10:48 Lymphocytes % 30.5 % (20.0-50.0) 07/04/18 10:48 Monocytes % 9.6 % (2.0-10.0) 07/04/18 10:48 Eosinophils % 5.9 % (0.0-5.0) H 07/04/18 10:48 Basophils % 0.9 % (0.0-2.0) 07/04/18 10:48 Sodium 136 mEq/L (136-145) 07/04/18 10:48 Potassium 4.1 mEq/L (3.5-5.1) 07/04/18 10:48 Chloride 106 mEq/L (98-107) 07/04/18 10:48 Carbon Dioxide 24.5 mEq/L (21.0-31.0) 07/04/18 10:48 Anion Gap 9.6 (7.0-16.0) 07/04/18 10:48 BUN 16 mg/dL (7-25) 07/04/18 10:48 Creatinine 0.7 mg/dL (0.7-1.3) 07/04/18 10:48 Est GFR ( Amer) TNP 07/04/18 10:48 Est GFR (Non-Af Amer) TNP 07/04/18 10:48 BUN/Creatinine Ratio 22.9 07/04/18 10:48 Glucose 103 mg/dL (70-105) 07/04/18 10:48 Calcium 10.4 mg/dL (8.6-10.3) H 07/04/18 10:48 Total Bilirubin 0.8 mg/dL (0.3-1.0) 07/04/18 10:48 AST 10 U/L (13-39) L 07/04/18 10:48 ALT 11 U/L (7-52) 07/04/18 10:48 Alkaline Phosphatase 51 U/L (34-104) 07/04/18 10:48 Troponin I < 0.01 ng/mL (0.01-0.05) L 07/04/18 10:48 Total Protein 6.4 gm/dL (6.0-8.3) 07/04/18 10:48 Albumin 3.6 gm/dL (4.2-5.5) L 07/04/18 10:48 Globulin 2.8 gm/dL 07/04/18 10:48 Albumin/Globulin Ratio 1.3 (1.0-1.8) 07/04/18 10:48 Triglycerides 74 mg/dL (<150) 07/04/18 10:48 Cholesterol 150 mg/dL (<200) 07/04/18 10:48 LDL Cholesterol Direct 85 mg/dL (75-193) 07/04/18 10:48 HDL Cholesterol 53 mg/dL (23-92) 07/04/18 10:48 TSH 2.23 uIU/ml (0.34-5.60) 07/04/18 10:48 Urine Source CLEAN C 07/04/18 10:30 Urine Color YELLOW 07/04/18 10:30 Urine Clarity CLEAR (CLEAR) 07/04/18 10:30 Urine pH 7.0 (4.6 - 8.0) 07/04/18 10:30 Ur Specific [place] 1.010 (1.005-1.030) 07/04/18 10:30 Urine Protein NEGATIVE mg/dL (NEGATIVE) 07/04/18 10:30 Urine Glucose (UA) NEGATIVE mg/dL (NEGATIVE) 07/04/18 10:30 Urine Ketones NEGATIVE mg/dL (NEGATIVE) 07/04/18 10:30 Urine Blood NEGATIVE (NEGATIVE) 07/04/18 10:30 Urine Nitrate NEGATIVE (NEGATIVE) 07/04/18 10:30 Urine Bilirubin NEGATIVE (NEGATIVE) 07/04/18 10:30 Urine Urobilinogen 0.2 E.U./dL (0.2 - 1.0) 07/04/18 10:30 Ur Leukocyte Esterase NEGATIVE (NEGATIVE) 07/04/18 10:30 Salicylates < 25.0 mg/L (30.0-100.0) L 07/04/18 10:48 Urine Opiates Screen NEGATIVE (NEGATIVE) 07/04/18 10:30 Urine Methadone Screen NEGATIVE (NEGATIVE) 07/04/18 10:30 Acetaminophen < 10.0 ug/mL (10.0-30.0) L 07/04/18 10:48 Ur Barbiturates Screen NEGATIVE (NEGATIVE) 07/04/18 10:30 Ur Tricyclics Screen POSITIVE (NEGATIVE) H 07/04/18 10:30 Ur Phencyclidine Scrn NEGATIVE (NEGATIVE) 07/04/18 10:30 Amphetamines Screen NEGATIVE (NEGATIVE) 07/04/18 10:30 U Methamphetamines Scrn NEGATIVE (NEGATIVE) 07/04/18 10:30 U Benzodiazepines Scrn NEGATIVE (NEGATIVE) 07/04/18 10:30 U Cocaine Metab Screen NEGATIVE (NEGATIVE) 07/04/18 10:30 U Cannabinoids Screen NEGATIVE (NEGATIVE) 07/04/18 10:30 Ethyl Alcohol < 10 mg/dL (0-10) 07/04/18 10:48 RPR NONREACTIVE (NONREACTIVE) 07/04/18 10:48 - Physical Exam Vitals and I&O: Vital Signs Temp 97.9 F 07/08/18 06:42 Pulse 75 07/08/18 06:42 Resp 18 07/08/18 06:42 BP 90/62 07/08/18 06:42 Pulse Ox 97 07/08/18 06:42 Intake & Output 07/07/18 07/08/18 07/08/18 18:59 06:59 18:59 Intake Total 1780 Balance 1780 Intake: Oral 1780 Other: # Voids 1 # Bowel Movements 1 Active Medications: Current Medications Acetaminophen (Tylenol) 650 mg PO Q4HR PRN PRN Reason: Mild Pain / Temp above 100 Stop: 09/02/18 18:31 Acetaminophen (Tylenol) 650 mg PO Q4HR PRN PRN Reason: Pain (Mild) Stop: 09/03/18 12:01 Al Hydrox/Mg Hydrox/Simethicone (Maalox) 30 ml PO Q4HR PRN PRN Reason: GI DISTRESS Stop: 09/02/18 18:31 Atorvastatin Calcium (Lipitor) 10 mg PO DAILY CECILIA; Protocol Stop: 09/04/18 08:59 Last Admin: 07/08/18 09:40 Dose: Not Given Divalproex Sodium (Depakote Dr) 250 mg PO Q12HR CECILIA; Protocol Stop: 09/05/18 20:59 Last Admin: 07/08/18 09:40 Dose: Not Given Docusate Sodium (Colace) 100 mg PO BID PRN PRN Reason: Constipation Stop: 09/03/18 12:01 Finasteride (Proscar) 5 mg PO DAILY CECILIA; Protocol Stop: 09/04/18 08:59 Last Admin: 07/08/18 09:40 Dose: Not Given Lorazepam (Ativan) 0.5 mg PO Q4HR PRN; Protocol PRN Reason: Agitation Stop: 08/03/18 18:31 Last Admin: 07/07/18 11:36 Dose: 0.5 mg Magnesium Hydroxide (Milk Of Magnesia) 30 ml PO HS PRN PRN Reason: Constipation Magnesium Hydroxide (Milk Of Magnesia) 30 ml PO HS PRN PRN Reason: Constipation Stop: 09/03/18 12:01 Multivitamins/Vitamin C (Theragran) 1 tab PO DAILY CECILIA Stop: 09/03/18 08:59 Last Admin: 07/08/18 09:39 Dose: Not Given Quetiapine Fumarate (Seroquel) 50 mg PO HS CECILIA; Protocol Stop: 09/02/18 20:59 Last Admin: 07/07/18 21:14 Dose: 50 mg Rivastigmine (Exelon 4.6 Mg/24 Hr Tdm) 1 patch TD DAILY CECILIA Stop: 09/04/18 08:59 Last Admin: 07/08/18 09:39 Dose: Not Given Tamsulosin HCl (Flomax) 0.4 mg PO HS CECILIA Stop: 09/03/18 20:59 Last Admin: 07/07/18 21:14 Dose: 0.4 mg Zolpidem Tartrate (Ambien) 5 mg PO HS PRN PRN Reason: Insomnia Stop: 09/02/18 18:31 General: weak HEENT: NC/AT, PERRLA Neck: Supple Lungs: CTAB Cardiovascular: RRR, Normal S1, Normal S2, with murmur Abdomen: soft, positive bowel sound Extremities: excoriation Neurological: no change Internal Medicine Assmt/Plan - Assessment Assessment: Assessment: depression HTN Dyslipidemia - Plan Plan: fall precautions continue snf meds continue current plan of care - Plan Plan: fall precaution cpm james rn
--- NOTE | 2018-07-08 23:51 | Progress Notes ---
DATE: 07/08/2018 SUBJECTIVE: Staff was spoken to. The patient is interviewed. Mood is noted to be irritable. Affect is constricted. Coping skills at this time are noted to be very poor. Insight and judgment are also noted to be very much impaired. No side effects to the medications are noted at this time. The patient, however, is noted to be very intrusive and demanding and the patient gets easily upset, even though the patient has been fed, the patient continues to be mentioning that he is still hungry. ASSESSMENT: The patient is still psychotic and impulsive. PLAN: To continue the patient with the supportive therapy, encouraged the patient to verbalize the concerns rather than to act out. JOB# [id number]
[2018-07-09] MEDS: Rivastigmine 4.6 mg/24 hr Tdm TD SCH (09:06)
[2018-07-09] MEDS: Atorvastatin Calcium 10 MG TAB PO SCH (09:07)
[2018-07-09] MEDS: Multivitamin Tab PO SCH (09:07)
--- NOTE | 2018-07-09 15:44 | Internal Medicine Prog Note ---
Internal Medicine Subjective - Subjective Service Date: 07/09/18 Patient is:: awake, verbal, interactive Patient Complaints of:: unable to sleep Per staff patient has:: no adverse event, no episodes of fall, tolerating meds Internal Medicine Objective - Results Result Diagrams: 07/04/18 10:48 07/04/18 10:48 Recent Labs: Laboratory Last Values WBC 6.7 Th/cmm (4.8-10.8) 07/04/18 10:48 RBC 5.40 Mil/cmm (3.80-5.80) 07/04/18 10:48 Hgb 14.9 gm/dL (12-16) 07/04/18 10:48 Hct 44.7 % (41.0-60) 07/04/18 10:48 MCV 82.7 fl (80-99) 07/04/18 10:48 MCH 27.6 pg (27.0-31.0) 07/04/18 10:48 MCHC Differential 33.3 pg (28.0-36.0) 07/04/18 10:48 RDW 13.6 % (11.5-20.0) 07/04/18 10:48 Plt Count 205 Th/cmm (150-400) 07/04/18 10:48 MPV 9.7 fl 07/04/18 10:48 Neutrophils % 53.1 % (40.0-80.0) 07/04/18 10:48 Lymphocytes % 30.5 % (20.0-50.0) 07/04/18 10:48 Monocytes % 9.6 % (2.0-10.0) 07/04/18 10:48 Eosinophils % 5.9 % (0.0-5.0) H 07/04/18 10:48 Basophils % 0.9 % (0.0-2.0) 07/04/18 10:48 Sodium 136 mEq/L (136-145) 07/04/18 10:48 Potassium 4.1 mEq/L (3.5-5.1) 07/04/18 10:48 Chloride 106 mEq/L (98-107) 07/04/18 10:48 Carbon Dioxide 24.5 mEq/L (21.0-31.0) 07/04/18 10:48 Anion Gap 9.6 (7.0-16.0) 07/04/18 10:48 BUN 16 mg/dL (7-25) 07/04/18 10:48 Creatinine 0.7 mg/dL (0.7-1.3) 07/04/18 10:48 Est GFR ( Amer) TNP 07/04/18 10:48 Est GFR (Non-Af Amer) TNP 07/04/18 10:48 BUN/Creatinine Ratio 22.9 07/04/18 10:48 Glucose 103 mg/dL (70-105) 07/04/18 10:48 Calcium 10.4 mg/dL (8.6-10.3) H 07/04/18 10:48 Total Bilirubin 0.8 mg/dL (0.3-1.0) 07/04/18 10:48 AST 10 U/L (13-39) L 07/04/18 10:48 ALT 11 U/L (7-52) 07/04/18 10:48 Alkaline Phosphatase 51 U/L (34-104) 07/04/18 10:48 Troponin I < 0.01 ng/mL (0.01-0.05) L 07/04/18 10:48 Total Protein 6.4 gm/dL (6.0-8.3) 07/04/18 10:48 Albumin 3.6 gm/dL (4.2-5.5) L 07/04/18 10:48 Globulin 2.8 gm/dL 07/04/18 10:48 Albumin/Globulin Ratio 1.3 (1.0-1.8) 07/04/18 10:48 Triglycerides 74 mg/dL (<150) 07/04/18 10:48 Cholesterol 150 mg/dL (<200) 07/04/18 10:48 LDL Cholesterol Direct 85 mg/dL (75-193) 07/04/18 10:48 HDL Cholesterol 53 mg/dL (23-92) 07/04/18 10:48 TSH 2.23 uIU/ml (0.34-5.60) 07/04/18 10:48 Urine Source CLEAN C 07/04/18 10:30 Urine Color YELLOW 07/04/18 10:30 Urine Clarity CLEAR (CLEAR) 07/04/18 10:30 Urine pH 7.0 (4.6 - 8.0) 07/04/18 10:30 Ur Specific [place] 1.010 (1.005-1.030) 07/04/18 10:30 Urine Protein NEGATIVE mg/dL (NEGATIVE) 07/04/18 10:30 Urine Glucose (UA) NEGATIVE mg/dL (NEGATIVE) 07/04/18 10:30 Urine Ketones NEGATIVE mg/dL (NEGATIVE) 07/04/18 10:30 Urine Blood NEGATIVE (NEGATIVE) 07/04/18 10:30 Urine Nitrate NEGATIVE (NEGATIVE) 07/04/18 10:30 Urine Bilirubin NEGATIVE (NEGATIVE) 07/04/18 10:30 Urine Urobilinogen 0.2 E.U./dL (0.2 - 1.0) 07/04/18 10:30 Ur Leukocyte Esterase NEGATIVE (NEGATIVE) 07/04/18 10:30 Salicylates < 25.0 mg/L (30.0-100.0) L 07/04/18 10:48 Urine Opiates Screen NEGATIVE (NEGATIVE) 07/04/18 10:30 Urine Methadone Screen NEGATIVE (NEGATIVE) 07/04/18 10:30 Acetaminophen < 10.0 ug/mL (10.0-30.0) L 07/04/18 10:48 Ur Barbiturates Screen NEGATIVE (NEGATIVE) 07/04/18 10:30 Ur Tricyclics Screen POSITIVE (NEGATIVE) H 07/04/18 10:30 Ur Phencyclidine Scrn NEGATIVE (NEGATIVE) 07/04/18 10:30 Amphetamines Screen NEGATIVE (NEGATIVE) 07/04/18 10:30 U Methamphetamines Scrn NEGATIVE (NEGATIVE) 07/04/18 10:30 U Benzodiazepines Scrn NEGATIVE (NEGATIVE) 07/04/18 10:30 U Cocaine Metab Screen NEGATIVE (NEGATIVE) 07/04/18 10:30 U Cannabinoids Screen NEGATIVE (NEGATIVE) 07/04/18 10:30 Ethyl Alcohol < 10 mg/dL (0-10) 07/04/18 10:48 RPR NONREACTIVE (NONREACTIVE) 07/04/18 10:48 - Physical Exam Vitals and I&O: Vital Signs Temp 98 F 07/09/18 14:30 Pulse 84 07/09/18 14:30 Resp 18 07/09/18 14:30 BP 135/61 07/09/18 14:30 Pulse Ox 96 07/09/18 14:30 Intake & Output 12/09/18 12/10/18 12/10/18 18:59 06:59 18:59 Intake Total 950 360 Balance 950 360 Intake: Oral 950 360 Other: # Voids 4 2 # Bowel Movements 1 0 Active Medications: Current Medications Acetaminophen (Tylenol) 650 mg PO Q4HR PRN PRN Reason: Mild Pain / Temp above 100 Stop: 09/02/18 18:31 Acetaminophen (Tylenol) 650 mg PO Q4HR PRN PRN Reason: Pain (Mild) Stop: 09/03/18 12:01 Al Hydrox/Mg Hydrox/Simethicone (Maalox) 30 ml PO Q4HR PRN PRN Reason: GI DISTRESS Stop: 09/02/18 18:31 Atorvastatin Calcium (Lipitor) 10 mg PO DAILY CECILIA; Protocol Stop: 09/04/18 08:59 Last Admin: 07/09/18 09:07 Dose: 10 mg Divalproex Sodium (Depakote Dr) 250 mg PO Q12HR CECILIA; Protocol Stop: 09/05/18 20:59 Last Admin: 07/09/18 09:07 Dose: 250 mg Docusate Sodium (Colace) 100 mg PO BID PRN PRN Reason: Constipation Stop: 09/03/18 12:01 Finasteride (Proscar) 5 mg PO DAILY CECILIA; Protocol Stop: 09/04/18 08:59 Last Admin: 07/09/18 09:07 Dose: 5 mg Lorazepam (Ativan) 0.5 mg PO Q4HR PRN; Protocol PRN Reason: Agitation Stop: 08/03/18 18:31 Last Admin: 07/09/18 09:07 Dose: 0.5 mg Magnesium Hydroxide (Milk Of Magnesia) 30 ml PO HS PRN PRN Reason: Constipation Magnesium Hydroxide (Milk Of Magnesia) 30 ml PO HS PRN PRN Reason: Constipation Stop: 09/03/18 12:01 Multivitamins/Vitamin C (Theragran) 1 tab PO DAILY CECILIA Stop: 09/03/18 08:59 Last Admin: 07/09/18 09:07 Dose: 1 tab Quetiapine Fumarate (Seroquel) 50 mg PO HS CECILIA; Protocol Stop: 09/02/18 20:59 Last Admin: 07/08/18 21:17 Dose: 50 mg Rivastigmine (Exelon 4.6 Mg/24 Hr Tdm) 1 patch TD DAILY CECILIA Stop: 09/04/18 08:59 Last Admin: 07/09/18 09:06 Dose: 1 patch Tamsulosin HCl (Flomax) 0.4 mg PO HS CECILIA Stop: 09/03/18 20:59 Last Admin: 07/08/18 21:17 Dose: 0.4 mg Zolpidem Tartrate (Ambien) 5 mg PO HS PRN PRN Reason: Insomnia Stop: 09/02/18 18:31 Last Admin: 07/08/18 21:17 Dose: 5 mg General: weak HEENT: NC/AT, PERRLA Neck: Supple Lungs: CTAB Cardiovascular: RRR, Normal S1, Normal S2, with murmur Abdomen: soft, positive bowel sound Extremities: excoriation Neurological: no change Internal Medicine Assmt/Plan - Assessment Assessment: depression HTN Dyslipidemia - Plan Plan: fall precautions continue snf meds continue current plan of care
[2018-07-10] MEDS: Rivastigmine 4.6 mg/24 hr Tdm TD SCH (09:11)
[2018-07-10] MEDS: Multivitamin Tab PO SCH (09:11)
[2018-07-10] MEDS: Atorvastatin Calcium 10 MG TAB PO SCH (09:11)
--- NOTE | 2018-07-10 14:47 | Internal Medicine Prog Note ---
Internal Medicine Subjective - Subjective Service Date: 07/10/18 Patient is:: awake, verbal, interactive Patient Complaints of:: unable to sleep Per staff patient has:: no adverse event, no episodes of fall, tolerating meds Internal Medicine Objective - Results Result Diagrams: 07/04/18 10:48 07/04/18 10:48 Recent Labs: Laboratory Last Values WBC 6.7 Th/cmm (4.8-10.8) 07/04/18 10:48 RBC 5.40 Mil/cmm (3.80-5.80) 07/04/18 10:48 Hgb 14.9 gm/dL (12-16) 07/04/18 10:48 Hct 44.7 % (41.0-60) 07/04/18 10:48 MCV 82.7 fl (80-99) 07/04/18 10:48 MCH 27.6 pg (27.0-31.0) 07/04/18 10:48 MCHC Differential 33.3 pg (28.0-36.0) 07/04/18 10:48 RDW 13.6 % (11.5-20.0) 07/04/18 10:48 Plt Count 205 Th/cmm (150-400) 07/04/18 10:48 MPV 9.7 fl 07/04/18 10:48 Neutrophils % 53.1 % (40.0-80.0) 07/04/18 10:48 Lymphocytes % 30.5 % (20.0-50.0) 07/04/18 10:48 Monocytes % 9.6 % (2.0-10.0) 07/04/18 10:48 Eosinophils % 5.9 % (0.0-5.0) H 07/04/18 10:48 Basophils % 0.9 % (0.0-2.0) 07/04/18 10:48 Sodium 136 mEq/L (136-145) 07/04/18 10:48 Potassium 4.1 mEq/L (3.5-5.1) 07/04/18 10:48 Chloride 106 mEq/L (98-107) 07/04/18 10:48 Carbon Dioxide 24.5 mEq/L (21.0-31.0) 07/04/18 10:48 Anion Gap 9.6 (7.0-16.0) 07/04/18 10:48 BUN 16 mg/dL (7-25) 07/04/18 10:48 Creatinine 0.7 mg/dL (0.7-1.3) 07/04/18 10:48 Est GFR ( Amer) TNP 07/04/18 10:48 Est GFR (Non-Af Amer) TNP 07/04/18 10:48 BUN/Creatinine Ratio 22.9 07/04/18 10:48 Glucose 103 mg/dL (70-105) 07/04/18 10:48 Calcium 10.4 mg/dL (8.6-10.3) H 07/04/18 10:48 Total Bilirubin 0.8 mg/dL (0.3-1.0) 07/04/18 10:48 AST 10 U/L (13-39) L 07/04/18 10:48 ALT 11 U/L (7-52) 07/04/18 10:48 Alkaline Phosphatase 51 U/L (34-104) 07/04/18 10:48 Troponin I < 0.01 ng/mL (0.01-0.05) L 07/04/18 10:48 Total Protein 6.4 gm/dL (6.0-8.3) 07/04/18 10:48 Albumin 3.6 gm/dL (4.2-5.5) L 07/04/18 10:48 Globulin 2.8 gm/dL 07/04/18 10:48 Albumin/Globulin Ratio 1.3 (1.0-1.8) 07/04/18 10:48 Triglycerides 74 mg/dL (<150) 07/04/18 10:48 Cholesterol 150 mg/dL (<200) 07/04/18 10:48 LDL Cholesterol Direct 85 mg/dL (75-193) 07/04/18 10:48 HDL Cholesterol 53 mg/dL (23-92) 07/04/18 10:48 TSH 2.23 uIU/ml (0.34-5.60) 07/04/18 10:48 Urine Source CLEAN C 07/04/18 10:30 Urine Color YELLOW 07/04/18 10:30 Urine Clarity CLEAR (CLEAR) 07/04/18 10:30 Urine pH 7.0 (4.6 - 8.0) 07/04/18 10:30 Ur Specific [place] 1.010 (1.005-1.030) 07/04/18 10:30 Urine Protein NEGATIVE mg/dL (NEGATIVE) 07/04/18 10:30 Urine Glucose (UA) NEGATIVE mg/dL (NEGATIVE) 07/04/18 10:30 Urine Ketones NEGATIVE mg/dL (NEGATIVE) 07/04/18 10:30 Urine Blood NEGATIVE (NEGATIVE) 07/04/18 10:30 Urine Nitrate NEGATIVE (NEGATIVE) 07/04/18 10:30 Urine Bilirubin NEGATIVE (NEGATIVE) 07/04/18 10:30 Urine Urobilinogen 0.2 E.U./dL (0.2 - 1.0) 07/04/18 10:30 Ur Leukocyte Esterase NEGATIVE (NEGATIVE) 07/04/18 10:30 Salicylates < 25.0 mg/L (30.0-100.0) L 07/04/18 10:48 Urine Opiates Screen NEGATIVE (NEGATIVE) 07/04/18 10:30 Urine Methadone Screen NEGATIVE (NEGATIVE) 07/04/18 10:30 Acetaminophen < 10.0 ug/mL (10.0-30.0) L 07/04/18 10:48 Ur Barbiturates Screen NEGATIVE (NEGATIVE) 07/04/18 10:30 Ur Tricyclics Screen POSITIVE (NEGATIVE) H 07/04/18 10:30 Ur Phencyclidine Scrn NEGATIVE (NEGATIVE) 07/04/18 10:30 Amphetamines Screen NEGATIVE (NEGATIVE) 07/04/18 10:30 U Methamphetamines Scrn NEGATIVE (NEGATIVE) 07/04/18 10:30 U Benzodiazepines Scrn NEGATIVE (NEGATIVE) 07/04/18 10:30 U Cocaine Metab Screen NEGATIVE (NEGATIVE) 07/04/18 10:30 U Cannabinoids Screen NEGATIVE (NEGATIVE) 07/04/18 10:30 Ethyl Alcohol < 10 mg/dL (0-10) 07/04/18 10:48 RPR NONREACTIVE (NONREACTIVE) 07/04/18 10:48 - Physical Exam Vitals and I&O: Vital Signs Temp 97.1 F 07/10/18 06:48 Pulse 118 07/10/18 06:48 Resp 20 07/10/18 06:48 BP 125/85 07/10/18 06:48 Pulse Ox 91 07/10/18 06:48 Intake & Output 07/09/18 07/10/1807/10/18 18:59 06:59 18:59 Other: # Voids 2 # Bowel Movements 0 Active Medications: Current Medications Acetaminophen (Tylenol) 650 mg PO Q4HR PRN PRN Reason: Mild Pain / Temp above 100 Stop: 09/02/18 18:31 Acetaminophen (Tylenol) 650 mg PO Q4HR PRN PRN Reason: Pain (Mild) Stop: 09/03/18 12:01 Al Hydrox/Mg Hydrox/Simethicone (Maalox) 30 ml PO Q4HR PRN PRN Reason: GI DISTRESS Stop: 09/02/18 18:31 Atorvastatin Calcium (Lipitor) 10 mg PO DAILY CECILIA; Protocol Stop: 09/04/18 08:59 Last Admin: 07/10/18 09:11 Dose: 10 mg Divalproex Sodium (Depakote Dr) 250 mg PO Q12HR CECILIA; Protocol Stop: 09/05/18 20:59 Last Admin: 07/10/18 09:11 Dose: 250 mg Docusate Sodium (Colace) 100 mg PO BID PRN PRN Reason: Constipation Stop: 09/03/18 12:01 Finasteride (Proscar) 5 mg PO DAILY CECILIA; Protocol Stop: 09/04/18 08:59 Last Admin: 07/10/18 09:11 Dose: 5 mg Lorazepam (Ativan) 0.5 mg PO Q4HR PRN; Protocol PRN Reason: Agitation Stop: 08/03/18 18:31 Last Admin: 07/10/18 06:25 Dose: 0.5 mg Magnesium Hydroxide (Milk Of Magnesia) 30 ml PO HS PRN PRN Reason: Constipation Magnesium Hydroxide (Milk Of Magnesia) 30 ml PO HS PRN PRN Reason: Constipation Stop: 09/03/18 12:01 Multivitamins/Vitamin C (Theragran) 1 tab PO DAILY CECILIA Stop: 09/03/18 08:59 Last Admin: 07/10/18 09:11 Dose: 1 tab Quetiapine Fumarate (Seroquel) 50 mg PO HS CECILIA; Protocol Stop: 09/02/18 20:59 Last Admin: 07/09/18 20:09 Dose: 50 mg Rivastigmine (Exelon 4.6 Mg/24 Hr Tdm) 1 patch TD DAILY CECILIA Stop: 09/04/18 08:59 Last Admin: 07/10/18 09:11 Dose: 1 patch Tamsulosin HCl (Flomax) 0.4 mg PO HS CECILIA Stop: 09/03/18 20:59 Last Admin: 07/09/18 20:08 Dose: 0.4 mg Zolpidem Tartrate (Ambien) 5 mg PO HS PRN PRN Reason: Insomnia Stop: 09/02/18 18:31 Last Admin: 07/09/18 20:08 Dose: 5 mg General: weak HEENT: NC/AT, PERRLA Neck: Supple Lungs: CTAB Cardiovascular: RRR, Normal S1, Normal S2, with murmur Abdomen: soft, positive bowel sound Extremities: excoriation Neurological: no change Internal Medicine Assmt/Plan - Assessment Assessment: depression HTN Dyslipidemia - Plan Plan: fall precautions continue snf meds continue current plan of care Nutritional Asmnt/Malnutr-PDOC - Dietary Evaluation Malnutrition Findings (Please click <Entered> for more info): Nutritional Asmnt/Malnutrition Start: 07/10/18 10: 38 Text: Status: Complete Freq: Protocol: Document 07/10/18 13:30 LCHENG (Rec: 07/10/18 13:40 [email or web address]) Nutritional Asmnt/Malnutrition Patient General Information Nutritional Screening Low Risk Diagnosis psychosis Pertinent Medical Hx/Surgical Hx HTN, dyslipidemia, depression, bipolar Subjective Information Pt seen sleeping in bed at time of visit. Per EMR, PO intake 50-75%. Current Diet Order/ Nutrition Support regular Pertinent Medications lipitor, colace, theragran, seroquel Pertinent Labs 07/04 glucose 103, Ca 10.4, Alb 3.6 Nutritional Hx/Data Height 6 ft Height (Calculated Centimeters) 182.9 Current Weight (lbs) 180 lb Weight (Calculated Kilograms) 81.6 Weight (Calculated Grams) 55298.6 [place] Body Weight 184 Body Mass Index (BMI) 24.4 Weight Status Approriate GI Symptoms GI Symptoms None Last BM 07/08 Difficult in: None Skin Integrity/Comment: dryness oriana score 20 Current %PO Fair (50-74%) Estimated Nutritional Goals BEE in Kcals: Using Current wt Calories/Kcals/Kg 25-30 Kcals Calculated 6932-3676 Protein: Using Current wt Protein g/k Protein Calculated 82 Fluid: ml 2049-2460ml (1ml/kcal) Nutritional Problem No current Nutrition Prob Problem N/A Malnutrition Alert Is there a minimum of two criteria No selected? Query Text:Check all the applicable criteria. A minimum of two criteria are recommended for diagnosis of either severe or non-severe malnutrition. Malnutrition Related to Morbid Obesity Malnutrition related to morbid obesity No Intervention/Recommendation Comments 1. Continue with regular diet as ordered. 2. Monitor PO intake, wt, labs and skin integrity 3. F/U as low risk in 7 days, 07/17, PO check 07/13 Expected Outcomes/Goals Expected Outcomes/Goals 1. PO intake to meet at least 75% of nutritional needs. 2. Wt stability, skin to remain intact, labs to approach WNL.
--- NOTE | 2018-07-10 21:46 | Progress Notes ---
DATE: 07/10/2018 SUBJECTIVE: Staff was spoken to. The patient is interviewed. Mood is noted to be irritable. Affect is constricted. Coping skills are noted to be still poor. The patient has been pacing on the unit. No side effects to the medications are noted. ASSESSMENT: The patient is still having difficult time to cope with the stress. PLAN: To continue the patient with the supportive therapy, encouraged the patient to verbalize the concerns rather than to act out. JOB# [id number]
[2018-07-11] MEDS: Rivastigmine 4.6 mg/24 hr Tdm TD SCH (08:51)
[2018-07-11] MEDS: Atorvastatin Calcium 10 MG TAB PO SCH (08:52)
[2018-07-11] MEDS: Multivitamin Tab PO SCH (08:52)
--- NOTE | 2018-07-11 23:44 | Progress Notes ---
DATE: 07/11/2018 PSYCHIATRIC PROGRESS NOTE SUBJECTIVE: Staff was spoken to. The patient is interviewed. Mood is noted to be dysphoric. The patient is pacing most of the time on the unit. Insight and judgment are noted to be very much impaired. The patient has been very intrusive. Speech is noted to be very loud and mood swings are noted. No side effects to the medications are noted. The patient needs to be redirected. Sleep and appetite are noted to be improving at this time. ASSESSMENT: The patient is still impulsive and psychotic. PLAN: To continue the patient with the supportive therapy and followup. JOB# [id number]
[2018-07-12] MEDS: Multivitamin Tab PO SCH (08:50)
[2018-07-12] MEDS: Atorvastatin Calcium 10 MG TAB PO SCH (08:50)
[2018-07-12] MEDS: Rivastigmine 4.6 mg/24 hr Tdm TD SCH (09:58)
--- NOTE | 2018-07-12 11:24 | Progress Notes ---
DATE: 07/12/2018 SUBJECTIVE: Staff was spoken to. The patient is interviewed. Mood is noted to be irritable. Affect is constricted. Continues to be paranoid and has been pacing on the unit. No side effects to medications are noted. The patient is currently on Seroquel and Depakote. The patient still is confused and not making much sense. ASSESSMENT: The patient is still psychotic and impulsive. PLAN: To continue the patient with the supportive therapy and followup. JOB# [id number]
--- NOTE | 2018-07-12 13:17 | Internal Medicine Prog Note ---
Internal Medicine Subjective - Subjective Patient seen and examined:: with staff, chart reviewed Patient is:: awake, verbal, interactive Patient Complaints of:: unable to sleep Per staff patient has:: no adverse event, no episodes of fall, tolerating meds Internal Medicine Objective - Results Result Diagrams: 07/04/18 10:48 07/04/18 10:48 Recent Labs: Laboratory Last Values WBC 6.7 Th/cmm (4.8-10.8) 07/04/18 10:48 RBC 5.40 Mil/cmm (3.80-5.80) 07/04/18 10:48 Hgb 14.9 gm/dL (12-16) 07/04/18 10:48 Hct 44.7 % (41.0-60) 07/04/18 10:48 MCV 82.7 fl (80-99) 07/04/18 10:48 MCH 27.6 pg (27.0-31.0) 07/04/18 10:48 MCHC Differential 33.3 pg (28.0-36.0) 07/04/18 10:48 RDW 13.6 % (11.5-20.0) 07/04/18 10:48 Plt Count 205 Th/cmm (150-400) 07/04/18 10:48 MPV 9.7 fl 07/04/18 10:48 Neutrophils % 53.1 % (40.0-80.0) 07/04/18 10:48 Lymphocytes % 30.5 % (20.0-50.0) 07/04/18 10:48 Monocytes % 9.6 % (2.0-10.0) 07/04/18 10:48 Eosinophils % 5.9 % (0.0-5.0) H 07/04/18 10:48 Basophils % 0.9 % (0.0-2.0) 07/04/18 10:48 Sodium 136 mEq/L (136-145) 07/04/18 10:48 Potassium 4.1 mEq/L (3.5-5.1) 07/04/18 10:48 Chloride 106 mEq/L (98-107) 07/04/18 10:48 Carbon Dioxide 24.5 mEq/L (21.0-31.0) 07/04/18 10:48 Anion Gap 9.6 (7.0-16.0) 07/04/18 10:48 BUN 16 mg/dL (7-25) 07/04/18 10:48 Creatinine 0.7 mg/dL (0.7-1.3) 07/04/18 10:48 Est GFR ( Amer) TNP 07/04/18 10:48 Est GFR (Non-Af Amer) TNP 07/04/18 10:48 BUN/Creatinine Ratio 22.9 07/04/18 10:48 Glucose 103 mg/dL (70-105) 07/04/18 10:48 Calcium 10.4 mg/dL (8.6-10.3) H 07/04/18 10:48 Total Bilirubin 0.8 mg/dL (0.3-1.0) 07/04/18 10:48 AST 10 U/L (13-39) L 07/04/18 10:48 ALT 11 U/L (7-52) 07/04/18 10:48 Alkaline Phosphatase 51 U/L (34-104) 07/04/18 10:48 Troponin I < 0.01 ng/mL (0.01-0.05) L 07/04/18 10:48 Total Protein 6.4 gm/dL (6.0-8.3) 07/04/18 10:48 Albumin 3.6 gm/dL (4.2-5.5) L 07/04/18 10:48 Globulin 2.8 gm/dL 07/04/18 10:48 Albumin/Globulin Ratio 1.3 (1.0-1.8) 07/04/18 10:48 Triglycerides 74 mg/dL (<150) 07/04/18 10:48 Cholesterol 150 mg/dL (<200) 07/04/18 10:48 LDL Cholesterol Direct 85 mg/dL (75-193) 07/04/18 10:48 HDL Cholesterol 53 mg/dL (23-92) 07/04/18 10:48 TSH 2.23 uIU/ml (0.34-5.60) 07/04/18 10:48 Urine Source CLEAN C 07/04/18 10:30 Urine Color YELLOW 07/04/18 10:30 Urine Clarity CLEAR (CLEAR) 07/04/18 10:30 Urine pH 7.0 (4.6 - 8.0) 07/04/18 10:30 Ur Specific [place] 1.010 (1.005-1.030) 07/04/18 10:30 Urine Protein NEGATIVE mg/dL (NEGATIVE) 07/04/18 10:30 Urine Glucose (UA) NEGATIVE mg/dL (NEGATIVE) 07/04/18 10:30 Urine Ketones NEGATIVE mg/dL (NEGATIVE) 07/04/18 10:30 Urine Blood NEGATIVE (NEGATIVE) 07/04/18 10:30 Urine Nitrate NEGATIVE (NEGATIVE) 07/04/18 10:30 Urine Bilirubin NEGATIVE (NEGATIVE) 07/04/18 10:30 Urine Urobilinogen 0.2 E.U./dL (0.2 - 1.0) 07/04/18 10:30 Ur Leukocyte Esterase NEGATIVE (NEGATIVE) 07/04/18 10:30 Salicylates < 25.0 mg/L (30.0-100.0) L 07/04/18 10:48 Urine Opiates Screen NEGATIVE (NEGATIVE) 07/04/18 10:30 Urine Methadone Screen NEGATIVE (NEGATIVE) 07/04/18 10:30 Acetaminophen < 10.0 ug/mL (10.0-30.0) L 07/04/18 10:48 Ur Barbiturates Screen NEGATIVE (NEGATIVE) 07/04/18 10:30 Ur Tricyclics Screen POSITIVE (NEGATIVE) H 07/04/18 10:30 Ur Phencyclidine Scrn NEGATIVE (NEGATIVE) 07/04/18 10:30 Amphetamines Screen NEGATIVE (NEGATIVE) 07/04/18 10:30 U Methamphetamines Scrn NEGATIVE (NEGATIVE) 07/04/18 10:30 U Benzodiazepines Scrn NEGATIVE (NEGATIVE) 07/04/18 10:30 U Cocaine Metab Screen NEGATIVE (NEGATIVE) 07/04/18 10:30 U Cannabinoids Screen NEGATIVE (NEGATIVE) 07/04/18 10:30 Ethyl Alcohol < 10 mg/dL (0-10) 07/04/18 10:48 RPR NONREACTIVE (NONREACTIVE) 07/04/18 10:48 - Physical Exam Vitals and I&O: Vital Signs Temp 97.1 F 07/12/18 06:44 Pulse 69 07/12/18 06:44 Resp 20 07/12/18 10:41 BP 116/90 07/12/18 06:44 Pulse Ox 98 07/12/18 06:44 Intake & Output 07/11/18 07/12/18 07/12/18 18:59 06:59 18:59 Intake Total 120 Balance 120 Intake: Oral 120 Other: # Voids 3 Active Medications: Current Medications Acetaminophen (Tylenol) 650 mg PO Q4HR PRN PRN Reason: Mild Pain / Temp above 100 Stop: 09/02/18 18:31 Acetaminophen (Tylenol) 650 mg PO Q4HR PRN PRN Reason: Pain (Mild) Stop: 09/03/18 12:01 Al Hydrox/Mg Hydrox/Simethicone (Maalox) 30 ml PO Q4HR PRN PRN Reason: GI DISTRESS Stop: 09/02/18 18:31 Atorvastatin Calcium (Lipitor) 10 mg PO DAILY CECILIA; Protocol Stop: 09/04/18 08:59 Last Admin: 07/12/18 08:50 Dose: 10 mg Divalproex Sodium (Depakote Dr) 250 mg PO Q12HR CECILIA; Protocol Stop: 09/05/18 20:59 Last Admin: 07/12/18 08:50 Dose: 250 mg Docusate Sodium (Colace) 100 mg PO BID PRN PRN Reason: Constipation Stop: 09/03/18 12:01 Finasteride (Proscar) 5 mg PO DAILY CECILIA; Protocol Stop: 09/04/18 08:59 Last Admin: 07/12/18 08:50 Dose: 5 mg Lorazepam (Ativan) 0.5 mg PO Q4HR PRN; Protocol PRN Reason: Agitation Stop: 08/03/18 18:31 Last Admin: 07/11/18 20:34 Dose: 0.5 mg Magnesium Hydroxide (Milk Of Magnesia) 30 ml PO HS PRN PRN Reason: Constipation Magnesium Hydroxide (Milk Of Magnesia) 30 ml PO HS PRN PRN Reason: Constipation Stop: 09/03/18 12:01 Multivitamins/Vitamin C (Theragran) 1 tab PO DAILY CECILIA Stop: 09/03/18 08:59 Last Admin: 07/12/18 08:50 Dose: 1 tab Quetiapine Fumarate (Seroquel) 50 mg PO HS CECILIA; Protocol Stop: 09/02/18 20:59 Last Admin: 07/11/18 20:34 Dose: 50 mg Rivastigmine (Exelon 4.6 Mg/24 Hr Tdm) 1 patch TD DAILY CECILIA Stop: 09/04/18 08:59 Last Admin: 07/12/18 09:58 Dose: Not Given Tamsulosin HCl (Flomax) 0.4 mg PO HS CECILIA Stop: 09/03/18 20:59 Last Admin: 07/11/18 20:33 Dose: 0.4 mg Zolpidem Tartrate (Ambien) 5 mg PO HS PRN PRN Reason: Insomnia Stop: 09/02/18 18:31 Last Admin: 07/11/18 20:34 Dose: 5 mg General: weak HEENT: NC/AT, PERRLA Neck: Supple Lungs: CTAB Cardiovascular: RRR, Normal S1, Normal S2, with murmur Abdomen: soft, positive bowel sound Extremities: excoriation Neurological: no change Internal Medicine Assmt/Plan - Assessment Assessment: Assessment: depression HTN Dyslipidemia - Plan Plan: fall precautions continue snf meds continue current plan of care - Plan Plan: fall precaution cpm dw rn Nutritional Asmnt/Malnutr-PDOC - Dietary Evaluation Malnutrition Findings (Please click <Entered> for more info): Nutritional Asmnt/Malnutrition Start: 07/10/18 10: 38 Text: Status: Complete Freq: Protocol: Document 07/10/18 13:30 LCHENG (Rec: 07/10/18 13:40 [email or web address] [email or web address]) Nutritional Asmnt/Malnutrition Patient General Information Nutritional Screening Low Risk Diagnosis psychosis Pertinent Medical Hx/Surgical Hx HTN, dyslipidemia, depression, bipolar Subjective Information Pt seen sleeping in bed at time of visit. Per EMR, PO intake 50-75%. Current Diet Order/ Nutrition Support regular Pertinent Medications lipitor, colace, theragran, seroquel Pertinent Labs 07/04 glucose 103, Ca 10.4, Alb 3.6 Nutritional Hx/Data Height 1.83 m Height (Calculated Centimeters) 182.9 Current Weight (lbs) 81.647 kg Weight (Calculated Kilograms) 81.6 Weight (Calculated Grams) 83250.6 [place] Body Weight 184 Body Mass Index (BMI) 24.4 Weight Status Approriate GI Symptoms GI Symptoms None Last BM 07/08 Difficult in: None Skin Integrity/Comment: dryness oriana score 20 Current %PO Fair (50-74%) Estimated Nutritional Goals BEE in Kcals: Using Current wt Calories/Kcals/Kg 25-30 Kcals Calculated 7386-9786 Protein: Using Current wt Protein g/k Protein Calculated 82 Fluid: ml 2049-2460ml (1ml/kcal) Nutritional Problem No current Nutrition Prob Problem N/A Malnutrition Alert Is there a minimum of two criteria No selected? Query Text:Check all the applicable criteria. A minimum of two criteria are recommended for diagnosis of either severe or non-severe malnutrition. Malnutrition Related to Morbid Obesity Malnutrition related to morbid obesity No Intervention/Recommendation Comments 1. Continue with regular diet as ordered. 2. Monitor PO intake, wt, labs and skin integrity 3. F/U as low risk in 7 days, 07/17, PO check 07/13 Expected Outcomes/Goals Expected Outcomes/Goals 1. PO intake to meet at least 75% of nutritional needs. 2. Wt stability, skin to remain intact, labs to approach WNL.
[2018-07-13] MEDS: Rivastigmine 4.6 mg/24 hr Tdm TD SCH (09:31)
[2018-07-13] MEDS: Atorvastatin Calcium 10 MG TAB PO SCH (09:32)
[2018-07-13] MEDS: Multivitamin Tab PO SCH (09:32)
--- NOTE | 2018-07-13 12:50 | Internal Medicine Prog Note ---
Internal Medicine Subjective - Subjective Patient seen and examined:: with staff, chart reviewed Patient is:: awake, verbal, interactive Patient Complaints of:: unable to sleep Per staff patient has:: no adverse event, no episodes of fall, tolerating meds Internal Medicine Objective - Results Result Diagrams: 07/04/18 10:48 07/04/18 10:48 Recent Labs: Laboratory Last Values WBC 6.7 Th/cmm (4.8-10.8) 07/04/18 10:48 RBC 5.40 Mil/cmm (3.80-5.80) 07/04/18 10:48 Hgb 14.9 gm/dL (12-16) 07/04/18 10:48 Hct 44.7 % (41.0-60) 07/04/18 10:48 MCV 82.7 fl (80-99) 07/04/18 10:48 MCH 27.6 pg (27.0-31.0) 07/04/18 10:48 MCHC Differential 33.3 pg (28.0-36.0) 07/04/18 10:48 RDW 13.6 % (11.5-20.0) 07/04/18 10:48 Plt Count 205 Th/cmm (150-400) 07/04/18 10:48 MPV 9.7 fl 07/04/18 10:48 Neutrophils % 53.1 % (40.0-80.0) 07/04/18 10:48 Lymphocytes % 30.5 % (20.0-50.0) 07/04/18 10:48 Monocytes % 9.6 % (2.0-10.0) 07/04/18 10:48 Eosinophils % 5.9 % (0.0-5.0) H 07/04/18 10:48 Basophils % 0.9 % (0.0-2.0) 07/04/18 10:48 Sodium 136 mEq/L (136-145) 07/04/18 10:48 Potassium 4.1 mEq/L (3.5-5.1) 07/04/18 10:48 Chloride 106 mEq/L (98-107) 07/04/18 10:48 Carbon Dioxide 24.5 mEq/L (21.0-31.0) 07/04/18 10:48 Anion Gap 9.6 (7.0-16.0) 07/04/18 10:48 BUN 16 mg/dL (7-25) 07/04/18 10:48 Creatinine 0.7 mg/dL (0.7-1.3) 07/04/18 10:48 Est GFR ( Amer) TNP 07/04/18 10:48 Est GFR (Non-Af Amer) TNP 07/04/18 10:48 BUN/Creatinine Ratio 22.9 07/04/18 10:48 Glucose 103 mg/dL (70-105) 07/04/18 10:48 Calcium 10.4 mg/dL (8.6-10.3) H 07/04/18 10:48 Total Bilirubin 0.8 mg/dL (0.3-1.0) 07/04/18 10:48 AST 10 U/L (13-39) L 07/04/18 10:48 ALT 11 U/L (7-52) 07/04/18 10:48 Alkaline Phosphatase 51 U/L (34-104) 07/04/18 10:48 Troponin I < 0.01 ng/mL (0.01-0.05) L 07/04/18 10:48 Total Protein 6.4 gm/dL (6.0-8.3) 07/04/18 10:48 Albumin 3.6 gm/dL (4.2-5.5) L 07/04/18 10:48 Globulin 2.8 gm/dL 07/04/18 10:48 Albumin/Globulin Ratio 1.3 (1.0-1.8) 07/04/18 10:48 Triglycerides 74 mg/dL (<150) 07/04/18 10:48 Cholesterol 150 mg/dL (<200) 07/04/18 10:48 LDL Cholesterol Direct 85 mg/dL (75-193) 07/04/18 10:48 HDL Cholesterol 53 mg/dL (23-92) 07/04/18 10:48 TSH 2.23 uIU/ml (0.34-5.60) 07/04/18 10:48 Urine Source CLEAN C 07/04/18 10:30 Urine Color YELLOW 07/04/18 10:30 Urine Clarity CLEAR (CLEAR) 07/04/18 10:30 Urine pH 7.0 (4.6 - 8.0) 07/04/18 10:30 Ur Specific [place] 1.010 (1.005-1.030) 07/04/18 10:30 Urine Protein NEGATIVE mg/dL (NEGATIVE) 07/04/18 10:30 Urine Glucose (UA) NEGATIVE mg/dL (NEGATIVE) 07/04/18 10:30 Urine Ketones NEGATIVE mg/dL (NEGATIVE) 07/04/18 10:30 Urine Blood NEGATIVE (NEGATIVE) 07/04/18 10:30 Urine Nitrate NEGATIVE (NEGATIVE) 07/04/18 10:30 Urine Bilirubin NEGATIVE (NEGATIVE) 07/04/18 10:30 Urine Urobilinogen 0.2 E.U./dL (0.2 - 1.0) 07/04/18 10:30 Ur Leukocyte Esterase NEGATIVE (NEGATIVE) 07/04/18 10:30 Salicylates < 25.0 mg/L (30.0-100.0) L 07/04/18 10:48 Urine Opiates Screen NEGATIVE (NEGATIVE) 07/04/18 10:30 Urine Methadone Screen NEGATIVE (NEGATIVE) 07/04/18 10:30 Acetaminophen < 10.0 ug/mL (10.0-30.0) L 07/04/18 10:48 Ur Barbiturates Screen NEGATIVE (NEGATIVE) 07/04/18 10:30 Ur Tricyclics Screen POSITIVE (NEGATIVE) H 07/04/18 10:30 Ur Phencyclidine Scrn NEGATIVE (NEGATIVE) 07/04/18 10:30 Amphetamines Screen NEGATIVE (NEGATIVE) 07/04/18 10:30 U Methamphetamines Scrn NEGATIVE (NEGATIVE) 07/04/18 10:30 U Benzodiazepines Scrn NEGATIVE (NEGATIVE) 07/04/18 10:30 U Cocaine Metab Screen NEGATIVE (NEGATIVE) 07/04/18 10:30 U Cannabinoids Screen NEGATIVE (NEGATIVE) 07/04/18 10:30 Ethyl Alcohol < 10 mg/dL (0-10) 07/04/18 10:48 RPR NONREACTIVE (NONREACTIVE) 07/04/18 10:48 - Physical Exam Vitals and I&O: Vital Signs Temp 97.8 F 07/12/18 20:16 Pulse 93 07/12/18 20:16 Resp 20 07/12/18 20:16 BP 110/66 07/12/18 20:16 Pulse Ox 97 07/12/18 20:16 Intake & Output 07/12/18 07/13/18 07/13/18 18:59 06:59 18:59 Intake Total 240 Balance 240 Intake: Oral 240 Other: # Voids 1 Active Medications: Current Medications Acetaminophen (Tylenol) 650 mg PO Q4HR PRN PRN Reason: Mild Pain / Temp above 100 Stop: 09/02/18 18:31 Acetaminophen (Tylenol) 650 mg PO Q4HR PRN PRN Reason: Pain (Mild) Stop: 09/03/18 12:01 Al Hydrox/Mg Hydrox/Simethicone (Maalox) 30 ml PO Q4HR PRN PRN Reason: GI DISTRESS Stop: 09/02/18 18:31 Atorvastatin Calcium (Lipitor) 10 mg PO DAILY CECILIA; Protocol Stop: 09/04/18 08:59 Last Admin: 07/13/18 09:32 Dose: 10 mg Divalproex Sodium (Depakote Dr) 250 mg PO Q12HR CECILIA; Protocol Stop: 09/05/18 20:59 Last Admin: 07/13/18 09:32 Dose: 250 mg Docusate Sodium (Colace) 100 mg PO BID PRN PRN Reason: Constipation Stop: 09/03/18 12:01 Finasteride (Proscar) 5 mg PO DAILY CECILIA; Protocol Stop: 09/04/18 08:59 Last Admin: 07/13/18 09:32 Dose: 5 mg Lorazepam (Ativan) 0.5 mg PO Q4HR PRN; Protocol PRN Reason: Agitation Stop: 08/03/18 18:31 Last Admin: 07/11/18 20:34 Dose: 0.5 mg Magnesium Hydroxide (Milk Of Magnesia) 30 ml PO HS PRN PRN Reason: Constipation Magnesium Hydroxide (Milk Of Magnesia) 30 ml PO HS PRN PRN Reason: Constipation Stop: 09/03/18 12:01 Multivitamins/Vitamin C (Theragran) 1 tab PO DAILY CECILIA Stop: 09/03/18 08:59 Last Admin: 07/13/18 09:32 Dose: 1 tab Quetiapine Fumarate (Seroquel) 50 mg PO HS CECILIA; Protocol Stop: 09/02/18 20:59 Last Admin: 07/12/18 21:15 Dose: 50 mg Rivastigmine (Exelon 4.6 Mg/24 Hr Tdm) 1 patch TD DAILY CECILIA Stop: 09/04/18 08:59 Last Admin: 07/13/18 09:31 Dose: 1 patch Tamsulosin HCl (Flomax) 0.4 mg PO HS CECILIA Stop: 09/03/18 20:59 Last Admin: 07/12/18 21:15 Dose: 0.4 mg Zolpidem Tartrate (Ambien) 5 mg PO HS PRN PRN Reason: Insomnia Stop: 09/02/18 18:31 Last Admin: 07/12/18 22:15 Dose: 5 mg General: weak HEENT: NC/AT, PERRLA Neck: Supple Lungs: CTAB Cardiovascular: RRR, Normal S1, Normal S2, with murmur Abdomen: soft, positive bowel sound Extremities: excoriation Neurological: no change Internal Medicine Assmt/Plan - Assessment Assessment: Assessment: depression HTN Dyslipidemia - Plan Plan: fall precautions continue snf meds continue current plan of care - Plan Plan: fall precaution cpm dw rn Nutritional Asmnt/Malnutr-PDOC - Dietary Evaluation Malnutrition Findings (Please click <Entered> for more info): Nutritional Asmnt/Malnutrition Start: 07/10/18 10: 38 Text: Status: Complete Freq: Protocol: Document 07/10/18 13:30 LCHENG (Rec: 07/10/18 13:40 [email or web address]) Nutritional Asmnt/Malnutrition Patient General Information Nutritional Screening Low Risk Diagnosis psychosis Pertinent Medical Hx/Surgical Hx HTN, dyslipidemia, depression, bipolar Subjective Information Pt seen sleeping in bed at time of visit. Per EMR, PO intake 50-75%. Current Diet Order/ Nutrition Support regular Pertinent Medications lipitor, colace, theragran, seroquel Pertinent Labs 07/04 glucose 103, Ca 10.4, Alb 3.6 Nutritional Hx/Data Height 1.83 m Height (Calculated Centimeters) 182.9 Current Weight (lbs) 81.647 kg Weight (Calculated Kilograms) 81.6 Weight (Calculated Grams) 23066.6 [place] Body Weight 184 Body Mass Index (BMI) 24.4 Weight Status Approriate GI Symptoms GI Symptoms None Last BM 07/08 Difficult in: None Skin Integrity/Comment: dryness oriana score 20 Current %PO Fair (50-74%) Estimated Nutritional Goals BEE in Kcals: Using Current wt Calories/Kcals/Kg 25-30 Kcals Calculated 8629-3863 Protein: Using Current wt Protein g/k Protein Calculated 82 Fluid: ml 2049-2460ml (1ml/kcal) Nutritional Problem No current Nutrition Prob Problem N/A Malnutrition Alert Is there a minimum of two criteria No selected? Query Text:Check all the applicable criteria. A minimum of two criteria are recommended for diagnosis of either severe or non-severe malnutrition. Malnutrition Related to Morbid Obesity Malnutrition related to morbid obesity No Intervention/Recommendation Comments 1. Continue with regular diet as ordered. 2. Monitor PO intake, wt, labs and skin integrity 3. F/U as low risk in 7 days, 07/17, PO check 07/13 Expected Outcomes/Goals Expected Outcomes/Goals 1. PO intake to meet at least 75% of nutritional needs. 2. Wt stability, skin to remain intact, labs to approach WNL.
--- NOTE | 2018-07-14 00:47 | Progress Notes ---
DATE: 07/13/2018 PSYCHIATRIC PROGRESS NOTE SUBJECTIVE: Staff was spoken to. The patient is interviewed. Mood is noted to be irritable. Affect is constricted. The patient has paranoid delusions. Coping skills are noted to be very poor. Insight and judgment are noted to be very poor. The patient has been pacing most of the time. No side effects to the medications are noted at this time. ASSESSMENT: The patient is still psychotic and impulsive. PLAN: To continue the patient with the supportive therapy. I encouraged the patient to verbalize the concerns rather than to act out. Please note that the patient is not ready to be discharged to a lower level of care yet. JOB# [id number]
[2018-07-14] MEDS: Atorvastatin Calcium 10 MG TAB PO SCH (09:25)
[2018-07-14] MEDS: Multivitamin Tab PO SCH (09:25)
[2018-07-14] MEDS: Rivastigmine 4.6 mg/24 hr Tdm TD SCH (09:32)
--- NOTE | 2018-07-14 12:58 | Progress Notes ---
DATE: 07/14/2018 SUBJECTIVE: Staff was spoken to. The patient is interviewed. Mood is noted to be irritable. Affect is constricted. Insight and judgment at this time are noted to be still impaired. Impulse control is noted to be limited. Coping skills are noted to be limited. The patient has been having difficult time to cope with the stress. No side effects to the medications are noted and the patient is pacing most of the time on the unit. The patient is not able to contract for safety, yet. ASSESSMENT: The patient is still psychotic. PLAN: To continue the patient with the Seroquel and follow the patient up. JOB# [id number]
--- NOTE | 2018-07-14 16:08 | Internal Medicine Prog Note ---
Internal Medicine Subjective - Subjective Service Date: 07/14/18 Patient is:: awake, verbal, interactive Patient Complaints of:: unable to sleep Per staff patient has:: no adverse event, no episodes of fall, tolerating meds Internal Medicine Objective - Results Result Diagrams: 07/04/18 10:48 07/04/18 10:48 Recent Labs: Laboratory Last Values WBC 6.7 Th/cmm (4.8-10.8) 07/04/18 10:48 RBC 5.40 Mil/cmm (3.80-5.80) 07/04/18 10:48 Hgb 14.9 gm/dL (12-16) 07/04/18 10:48 Hct 44.7 % (41.0-60) 07/04/18 10:48 MCV 82.7 fl (80-99) 07/04/18 10:48 MCH 27.6 pg (27.0-31.0) 07/04/18 10:48 MCHC Differential 33.3 pg (28.0-36.0) 07/04/18 10:48 RDW 13.6 % (11.5-20.0) 07/04/18 10:48 Plt Count 205 Th/cmm (150-400) 07/04/18 10:48 MPV 9.7 fl 07/04/18 10:48 Neutrophils % 53.1 % (40.0-80.0) 07/04/18 10:48 Lymphocytes % 30.5 % (20.0-50.0) 07/04/18 10:48 Monocytes % 9.6 % (2.0-10.0) 07/04/18 10:48 Eosinophils % 5.9 % (0.0-5.0) H 07/04/18 10:48 Basophils % 0.9 % (0.0-2.0) 07/04/18 10:48 Sodium 136 mEq/L (136-145) 07/04/18 10:48 Potassium 4.1 mEq/L (3.5-5.1) 07/04/18 10:48 Chloride 106 mEq/L (98-107) 07/04/18 10:48 Carbon Dioxide 24.5 mEq/L (21.0-31.0) 07/04/18 10:48 Anion Gap 9.6 (7.0-16.0) 07/04/18 10:48 BUN 16 mg/dL (7-25) 07/04/18 10:48 Creatinine 0.7 mg/dL (0.7-1.3) 07/04/18 10:48 Est GFR ( Amer) TNP 07/04/18 10:48 Est GFR (Non-Af Amer) TNP 07/04/18 10:48 BUN/Creatinine Ratio 22.9 07/04/18 10:48 Glucose 103 mg/dL (70-105) 07/04/18 10:48 Calcium 10.4 mg/dL (8.6-10.3) H 07/04/18 10:48 Total Bilirubin 0.8 mg/dL (0.3-1.0) 07/04/18 10:48 AST 10 U/L (13-39) L 07/04/18 10:48 ALT 11 U/L (7-52) 07/04/18 10:48 Alkaline Phosphatase 51 U/L (34-104) 07/04/18 10:48 Troponin I < 0.01 ng/mL (0.01-0.05) L 07/04/18 10:48 Total Protein 6.4 gm/dL (6.0-8.3) 07/04/18 10:48 Albumin 3.6 gm/dL (4.2-5.5) L 07/04/18 10:48 Globulin 2.8 gm/dL 07/04/18 10:48 Albumin/Globulin Ratio 1.3 (1.0-1.8) 07/04/18 10:48 Triglycerides 74 mg/dL (<150) 07/04/18 10:48 Cholesterol 150 mg/dL (<200) 07/04/18 10:48 LDL Cholesterol Direct 85 mg/dL (75-193) 07/04/18 10:48 HDL Cholesterol 53 mg/dL (23-92) 07/04/18 10:48 TSH 2.23 uIU/ml (0.34-5.60) 07/04/18 10:48 Urine Source CLEAN C 07/04/18 10:30 Urine Color YELLOW 07/04/18 10:30 Urine Clarity CLEAR (CLEAR) 07/04/18 10:30 Urine pH 7.0 (4.6 - 8.0) 07/04/18 10:30 Ur Specific [place] 1.010 (1.005-1.030) 07/04/18 10:30 Urine Protein NEGATIVE mg/dL (NEGATIVE) 07/04/18 10:30 Urine Glucose (UA) NEGATIVE mg/dL (NEGATIVE) 07/04/18 10:30 Urine Ketones NEGATIVE mg/dL (NEGATIVE) 07/04/18 10:30 Urine Blood NEGATIVE (NEGATIVE) 07/04/18 10:30 Urine Nitrate NEGATIVE (NEGATIVE) 07/04/18 10:30 Urine Bilirubin NEGATIVE (NEGATIVE) 07/04/18 10:30 Urine Urobilinogen 0.2 E.U./dL (0.2 - 1.0) 07/04/18 10:30 Ur Leukocyte Esterase NEGATIVE (NEGATIVE) 07/04/18 10:30 Salicylates < 25.0 mg/L (30.0-100.0) L 07/04/18 10:48 Urine Opiates Screen NEGATIVE (NEGATIVE) 07/04/18 10:30 Urine Methadone Screen NEGATIVE (NEGATIVE) 07/04/18 10:30 Acetaminophen < 10.0 ug/mL (10.0-30.0) L 07/04/18 10:48 Ur Barbiturates Screen NEGATIVE (NEGATIVE) 07/04/18 10:30 Ur Tricyclics Screen POSITIVE (NEGATIVE) H 07/04/18 10:30 Ur Phencyclidine Scrn NEGATIVE (NEGATIVE) 07/04/18 10:30 Amphetamines Screen NEGATIVE (NEGATIVE) 07/04/18 10:30 U Methamphetamines Scrn NEGATIVE (NEGATIVE) 07/04/18 10:30 U Benzodiazepines Scrn NEGATIVE (NEGATIVE) 07/04/18 10:30 U Cocaine Metab Screen NEGATIVE (NEGATIVE) 07/04/18 10:30 U Cannabinoids Screen NEGATIVE (NEGATIVE) 07/04/18 10:30 Ethyl Alcohol < 10 mg/dL (0-10) 07/04/18 10:48 RPR NONREACTIVE (NONREACTIVE) 07/04/18 10:48 - Physical Exam Vitals and I&O: Vital Signs Temp 97.2 F 07/14/18 14:00 Pulse 76 07/14/18 14:00 Resp 20 07/14/18 14:00 BP 118/68 07/14/18 14:00 Pulse Ox 96 07/14/18 14:00 Intake & Output 07/13/18 07/14/1807/14/18 18:59 06:59 18:59 Intake Total 1000 480 200 Balance 1000 480 200 Intake: Oral 1000 480 200 Other: # Voids 3 3 3 # Bowel Movements 1 0 0 Stool Characteristics Soft Active Medications: Current Medications Acetaminophen (Tylenol) 650 mg PO Q4HR PRN PRN Reason: Mild Pain / Temp above 100 Stop: 09/02/18 18:31 Acetaminophen (Tylenol) 650 mg PO Q4HR PRN PRN Reason: Pain (Mild) Stop: 09/03/18 12:01 Al Hydrox/Mg Hydrox/Simethicone (Maalox) 30 ml PO Q4HR PRN PRN Reason: GI DISTRESS Stop: 09/02/18 18:31 Atorvastatin Calcium (Lipitor) 10 mg PO DAILY CECILIA; Protocol Stop: 09/04/18 08:59 Last Admin: 07/14/18 09:25 Dose: 10 mg Divalproex Sodium (Depakote Dr) 250 mg PO Q12HR CECILIA; Protocol Stop: 09/05/18 20:59 Last Admin: 07/14/18 09:25 Dose: 250 mg Docusate Sodium (Colace) 100 mg PO BID PRN PRN Reason: Constipation Stop: 09/03/18 12:01 Finasteride (Proscar) 5 mg PO DAILY CECILIA; Protocol Stop: 09/04/18 08:59 Last Admin: 07/14/18 09:25 Dose: 5 mg Lorazepam (Ativan) 0.5 mg PO Q4HR PRN; Protocol PRN Reason: Agitation Stop: 08/03/18 18:31 Last Admin: 07/14/18 09:59 Dose: 0.5 mg Magnesium Hydroxide (Milk Of Magnesia) 30 ml PO HS PRN PRN Reason: Constipation Magnesium Hydroxide (Milk Of Magnesia) 30 ml PO HS PRN PRN Reason: Constipation Stop: 09/03/18 12:01 Multivitamins/Vitamin C (Theragran) 1 tab PO DAILY CECILIA Stop: 09/03/18 08:59 Last Admin: 07/14/18 09:25 Dose: 1 tab Quetiapine Fumarate (Seroquel) 50 mg PO HS CECILIA; Protocol Stop: 09/02/18 20:59 Last Admin: 07/13/18 21:34 Dose: 50 mg Rivastigmine (Exelon 4.6 Mg/24 Hr Tdm) 1 patch TD DAILY CECILIA Stop: 09/04/18 08:59 Last Admin: 07/14/18 09:32 Dose: 1 patch Tamsulosin HCl (Flomax) 0.4 mg PO HS CECILIA Stop: 09/03/18 20:59 Last Admin: 07/13/18 21:34 Dose: 0.4 mg Zolpidem Tartrate (Ambien) 5 mg PO HS PRN PRN Reason: Insomnia Stop: 09/02/18 18:31 Last Admin: 07/12/18 22:15 Dose: 5 mg General: weak HEENT: NC/AT, PERRLA Neck: Supple Lungs: CTAB Cardiovascular: RRR, Normal S1, Normal S2, with murmur Abdomen: soft, positive bowel sound Extremities: excoriation Neurological: no change Internal Medicine Assmt/Plan - Assessment Assessment: depression HTN Dyslipidemia - Plan Plan: fall precautions continue snf meds continue current plan of care Nutritional Asmnt/Malnutr-PDOC - Dietary Evaluation Malnutrition Findings (Please click <Entered> for more info): Nutritional Asmnt/Malnutrition Start: 07/10/18 10: 38 Text: Status: Complete Freq: Protocol: Document 07/10/18 13:30 LCHENG (Rec: 07/10/18 13:40 LCHENG [email or web address]) Nutritional Asmnt/Malnutrition Patient General Information Nutritional Screening Low Risk Diagnosis psychosis Pertinent Medical Hx/Surgical Hx HTN, dyslipidemia, depression, bipolar Subjective Information Pt seen sleeping in bed at time of visit. Per EMR, PO intake 50-75%. Current Diet Order/ Nutrition Support regular Pertinent Medications lipitor, colace, theragran, seroquel Pertinent Labs 07/04 glucose 103, Ca 10.4, Alb 3.6 Nutritional Hx/Data Height 6 ft Height (Calculated Centimeters) 182.9 Current Weight (lbs) 180 lb Weight (Calculated Kilograms) 81.6 Weight (Calculated Grams) 86199.6 [place] Body Weight 184 Body Mass Index (BMI) 24.4 Weight Status Approriate GI Symptoms GI Symptoms None Last BM 07/08 Difficult in: None Skin Integrity/Comment: dryness oriana score 20 Current %PO Fair (50-74%) Estimated Nutritional Goals BEE in Kcals: Using Current wt Calories/Kcals/Kg 25-30 Kcals Calculated 6570-7014 Protein: Using Current wt Protein g/k Protein Calculated 82 Fluid: ml 2049-2460ml (1ml/kcal) Nutritional Problem No current Nutrition Prob Problem N/A Malnutrition Alert Is there a minimum of two criteria No selected? Query Text:Check all the applicable criteria. A minimum of two criteria are recommended for diagnosis of either severe or non-severe malnutrition. Malnutrition Related to Morbid Obesity Malnutrition related to morbid obesity No Intervention/Recommendation Comments 1. Continue with regular diet as ordered. 2. Monitor PO intake, wt, labs and skin integrity 3. F/U as low risk in 7 days, 07/17, PO check 07/13 Expected Outcomes/Goals Expected Outcomes/Goals 1. PO intake to meet at least 75% of nutritional needs. 2. Wt stability, skin to remain intact, labs to approach WNL.
[2018-07-15] MEDS: Rivastigmine 4.6 mg/24 hr Tdm TD SCH (09:30)
[2018-07-15] MEDS: Multivitamin Tab PO SCH (09:31)
[2018-07-15] MEDS: Atorvastatin Calcium 10 MG TAB PO SCH (09:32)
--- NOTE | 2018-07-15 15:52 | Internal Medicine Prog Note ---
Internal Medicine Subjective - Subjective Service Date: 07/15/18 Patient is:: awake, verbal, interactive Patient Complaints of:: unable to sleep Per staff patient has:: no adverse event, no episodes of fall, tolerating meds Internal Medicine Objective - Results Result Diagrams: 07/04/18 10:48 07/04/18 10:48 Recent Labs: Laboratory Last Values WBC 6.7 Th/cmm (4.8-10.8) 07/04/18 10:48 RBC 5.40 Mil/cmm (3.80-5.80) 07/04/18 10:48 Hgb 14.9 gm/dL (-16) 07/04/18 10:48 Hct 44.7 % (41.0-60) 07/04/18 10:48 MCV 82.7 fl (80-99) 07/04/18 10:48 MCH 27.6 pg (27.0-31.0) 07/04/18 10:48 MCHC Differential 33.3 pg (28.0-36.0) 07/04/18 10:48 RDW 13.6 % (11.5-20.0) 07/04/18 10:48 Plt Count 205 Th/cmm (150-400) 07/04/18 10:48 MPV 9.7 fl 07/04/18 10:48 Neutrophils % 53.1 % (40.0-80.0) 07/04/18 10:48 Lymphocytes % 30.5 % (20.0-50.0) 07/04/18 10:48 Monocytes % 9.6 % (2.0-10.0) 07/04/18 10:48 Eosinophils % 5.9 % (0.0-5.0) H 07/04/18 10:48 Basophils % 0.9 % (0.0-2.0) 07/04/18 10:48 Sodium 136 mEq/L (136-145) 07/04/18 10:48 Potassium 4.1 mEq/L (3.5-5.1) 07/04/18 10:48 Chloride 106 mEq/L (98-107) 07/04/18 10:48 Carbon Dioxide 24.5 mEq/L (21.0-31.0) 07/04/18 10:48 Anion Gap 9.6 (7.0-16.0) 07/04/18 10:48 BUN 16 mg/dL (7-25) 07/04/18 10:48 Creatinine 0.7 mg/dL (0.7-1.3) 07/04/18 10:48 Est GFR ( Amer) TNP 07/04/18 10:48 Est GFR (Non-Af Amer) TNP 07/04/18 10:48 BUN/Creatinine Ratio 22.9 07/04/18 10:48 Glucose 103 mg/dL (70-105) 07/04/18 10:48 Calcium 10.4 mg/dL (8.6-10.3) H 07/04/18 10:48 Total Bilirubin 0.8 mg/dL (0.3-1.0) 07/04/18 10:48 AST 10 U/L (13-39) L 07/04/18 10:48 ALT 11 U/L (7-52) 07/04/18 10:48 Alkaline Phosphatase 51 U/L (34-104) 07/04/18 10:48 Troponin I < 0.01 ng/mL (0.01-0.05) L 07/04/18 10:48 Total Protein 6.4 gm/dL (6.0-8.3) 07/04/18 10:48 Albumin 3.6 gm/dL (4.2-5.5) L 07/04/18 10:48 Globulin 2.8 gm/dL 07/04/18 10:48 Albumin/Globulin Ratio 1.3 (1.0-1.8) 07/04/18 10:48 Triglycerides 74 mg/dL (<150) 07/04/18 10:48 Cholesterol 150 mg/dL (<200) 07/04/18 10:48 LDL Cholesterol Direct 85 mg/dL (75-193) 07/04/18 10:48 HDL Cholesterol 53 mg/dL (23-92) 07/04/18 10:48 TSH 2.23 uIU/ml (0.34-5.60) 07/04/18 10:48 Urine Source CLEAN C 07/04/18 10:30 Urine Color YELLOW 07/04/18 10:30 Urine Clarity CLEAR (CLEAR) 07/04/18 10:30 Urine pH 7.0 (4.6 - 8.0) 07/04/18 10:30 Ur Specific [place] 1.010 (1.005-1.030) 07/04/18 10:30 Urine Protein NEGATIVE mg/dL (NEGATIVE) 07/04/18 10:30 Urine Glucose (UA) NEGATIVE mg/dL (NEGATIVE) 07/04/18 10:30 Urine Ketones NEGATIVE mg/dL (NEGATIVE) 07/04/18 10:30 Urine Blood NEGATIVE (NEGATIVE) 07/04/18 10:30 Urine Nitrate NEGATIVE (NEGATIVE) 07/04/18 10:30 Urine Bilirubin NEGATIVE (NEGATIVE) 07/04/18 10:30 Urine Urobilinogen 0.2 E.U./dL (0.2 - 1.0) 07/04/18 10:30 Ur Leukocyte Esterase NEGATIVE (NEGATIVE) 07/04/18 10:30 Salicylates < 25.0 mg/L (30.0-100.0) L 07/04/18 10:48 Urine Opiates Screen NEGATIVE (NEGATIVE) 07/04/18 10:30 Urine Methadone Screen NEGATIVE (NEGATIVE) 07/04/18 10:30 Acetaminophen < 10.0 ug/mL (10.0-30.0) L 07/04/18 10:48 Ur Barbiturates Screen NEGATIVE (NEGATIVE) 07/04/18 10:30 Ur Tricyclics Screen POSITIVE (NEGATIVE) H 07/04/18 10:30 Ur Phencyclidine Scrn NEGATIVE (NEGATIVE) 07/04/18 10:30 Amphetamines Screen NEGATIVE (NEGATIVE) 07/04/18 10:30 U Methamphetamines Scrn NEGATIVE (NEGATIVE) 07/04/18 10:30 U Benzodiazepines Scrn NEGATIVE (NEGATIVE) 07/04/18 10:30 U Cocaine Metab Screen NEGATIVE (NEGATIVE) 07/04/18 10:30 U Cannabinoids Screen NEGATIVE (NEGATIVE) 07/04/18 10:30 Ethyl Alcohol < 10 mg/dL (0-10) 07/04/18 10:48 RPR NONREACTIVE (NONREACTIVE) 07/04/18 10:48 - Physical Exam Vitals and I&O: Vital Signs Temp 97 F 07/15/18 06:46 Pulse 78 07/15/18 06:46 Resp 20 07/15/18 06:46 BP 110/72 07/15/18 06:46 Pulse Ox 96 07/15/18 06:46 Intake & Output 07/14/18 07/15/18 07/15/18 18:59 06:59 18:59 Intake Total 1000 370 Balance 1000 370 Intake: Oral 1000 370 Other: # Voids 3 3 # Bowel Movements 1 0 Stool Characteristics Soft Active Medications: Current Medications Acetaminophen (Tylenol) 650 mg PO Q4HR PRN PRN Reason: Mild Pain / Temp above 100 Stop: 09/02/18 18:31 Acetaminophen (Tylenol) 650 mg PO Q4HR PRN PRN Reason: Pain (Mild) Stop: 09/03/18 12:01 Al Hydrox/Mg Hydrox/Simethicone (Maalox) 30 ml PO Q4HR PRN PRN Reason: GI DISTRESS Stop: 09/02/18 18:31 Atorvastatin Calcium (Lipitor) 10 mg PO DAILY CECILIA; Protocol Stop: 09/04/18 08:59 Last Admin: 07/15/18 09:32 Dose: 10 mg Divalproex Sodium (Depakote Dr) 250 mg PO Q12HR CECILIA; Protocol Stop: 09/05/18 20:59 Last Admin: 07/15/18 09:32 Dose: 250 mg Docusate Sodium (Colace) 100 mg PO BID PRN PRN Reason: Constipation Stop: 09/03/18 12:01 Finasteride (Proscar) 5 mg PO DAILY CECILIA; Protocol Stop: 09/04/18 08:59 Last Admin: 07/15/18 09:31 Dose: 5 mg Lorazepam (Ativan) 0.5 mg PO Q4HR PRN; Protocol PRN Reason: Agitation Stop: 08/03/18 18:31 Last Admin: 07/14/18 09:59 Dose: 0.5 mg Magnesium Hydroxide (Milk Of Magnesia) 30 ml PO HS PRN PRN Reason: Constipation Magnesium Hydroxide (Milk Of Magnesia) 30 ml PO HS PRN PRN Reason: Constipation Stop: 09/03/18 12:01 Multivitamins/Vitamin C (Theragran) 1 tab PO DAILY CECILIA Stop: 09/03/18 08:59 Last Admin: 07/15/18 09:31 Dose: 1 tab Quetiapine Fumarate (Seroquel) 50 mg PO HS CECILIA; Protocol Stop: 09/02/18 20:59 Last Admin: 07/14/18 21:52 Dose: 50 mg Rivastigmine (Exelon 4.6 Mg/24 Hr Tdm) 1 patch TD DAILY CECILIA Stop: 09/04/18 08:59 Last Admin: 07/15/18 09:30 Dose: 1 patch Tamsulosin HCl (Flomax) 0.4 mg PO HS CECILIA Stop: 09/03/18 20:59 Last Admin: 07/14/18 21:52 Dose: 0.4 mg Zolpidem Tartrate (Ambien) 5 mg PO HS PRN PRN Reason: Insomnia Stop: 09/02/18 18:31 Last Admin: 07/12/18 22:15 Dose: 5 mg General: weak HEENT: NC/AT, PERRLA Neck: Supple Lungs: CTAB Cardiovascular: RRR, Normal S1, Normal S2, with murmur Abdomen: soft, positive bowel sound Extremities: excoriation Neurological: no change Internal Medicine Assmt/Plan - Assessment Assessment: depression HTN Dyslipidemia - Plan Plan: fall precautions continue snf meds continue current plan of care Nutritional Asmnt/Malnutr-PDOC - Dietary Evaluation Malnutrition Findings (Please click <Entered> for more info): Nutritional Asmnt/Malnutrition Start: 07/10/18 10: 38 Text: Status: Complete Freq: Protocol: Document 07/10/18 13:30 LCHENG (Rec: 07/10/18 13:40 [email or web address]) Nutritional Asmnt/Malnutrition Patient General Information Nutritional Screening Low Risk Diagnosis psychosis Pertinent Medical Hx/Surgical Hx HTN, dyslipidemia, depression, bipolar Subjective Information Pt seen sleeping in bed at time of visit. Per EMR, PO intake 50-75%. Current Diet Order/ Nutrition Support regular Pertinent Medications lipitor, colace, theragran, seroquel Pertinent Labs 07/04 glucose 103, Ca 10.4, Alb 3.6 Nutritional Hx/Data Height 6 ft Height (Calculated Centimeters) 182.9 Current Weight (lbs) 180 lb Weight (Calculated Kilograms) 81.6 Weight (Calculated Grams) 96093.6 [place] Body Weight 184 Body Mass Index (BMI) 24.4 Weight Status Approriate GI Symptoms GI Symptoms None Last BM 07/08 Difficult in: None Skin Integrity/Comment: dryness oriana score 20 Current %PO Fair (50-74%) Estimated Nutritional Goals BEE in Kcals: Using Current wt Calories/Kcals/Kg 25-30 Kcals Calculated 3221-0835 Protein: Using Current wt Protein g/k Protein Calculated 82 Fluid: ml 2050-2460ml (1ml/kcal) Nutritional Problem No current Nutrition Prob Problem N/A Malnutrition Alert Is there a minimum of two criteria No selected? Query Text:Check all the applicable criteria. A minimum of two criteria are recommended for diagnosis of either severe or non-severe malnutrition. Malnutrition Related to Morbid Obesity Malnutrition related to morbid obesity No Intervention/Recommendation Comments 1. Continue with regular diet as ordered. 2. Monitor PO intake, wt, labs and skin integrity 3. F/U as low risk in 7 days, 07/17, PO check 07/13 Expected Outcomes/Goals Expected Outcomes/Goals 1. PO intake to meet at least 75% of nutritional needs. 2. Wt stability, skin to remain intact, labs to approach WNL.
--- NOTE | 2018-07-15 20:44 | Progress Notes ---
DATE: 07/15/2018 SUBJECTIVE: Staff was spoken to. The patient is interviewed. Mood is noted to be irritable. Affect is constricted. The patient has paranoid delusions. Mood swings are coming under control. No side effects to the medications are noted. The patient is currently on Depakote 250 mg twice a day and Seroquel is being given at 50 mg at bedtime and aggressive behavior seems to be coming under control. No side effects to the medications are noted. ASSESSMENT: The patient's impulsivity is coming under control. PLAN: To continue the patient with supportive therapy, encouraged the patient to verbalize the concerns rather than to act out. JOB# [id number]
[2018-07-16] MEDS: Multivitamin Tab PO SCH (09:33)
[2018-07-16] MEDS: Atorvastatin Calcium 10 MG TAB PO SCH (09:33)
[2018-07-16] MEDS: Rivastigmine 4.6 mg/24 hr Tdm TD SCH (09:33)
--- NOTE | 2018-07-16 14:00 | Internal Medicine Prog Note ---
Internal Medicine Subjective - Subjective Service Date: 07/16/18 Patient is:: awake, verbal, interactive Patient Complaints of:: unable to sleep Per staff patient has:: no adverse event, no episodes of fall, tolerating meds Internal Medicine Objective - Results Result Diagrams: 07/04/18 10:48 07/04/18 10:48 Recent Labs: Laboratory Last Values WBC 6.7 Th/cmm (4.8-10.8) 07/04/18 10:48 RBC 5.40 Mil/cmm (3.80-5.80) 07/04/18 10:48 Hgb 14.9 gm/dL (12-16) 07/04/18 10:48 Hct 44.7 % (41.0-60) 07/04/18 10:48 MCV 82.7 fl (80-99) 07/04/18 10:48 MCH 27.6 pg (27.0-31.0) 07/04/18 10:48 MCHC Differential 33.3 pg (28.0-36.0) 07/04/18 10:48 RDW 13.6 % (11.5-20.0) 07/04/18 10:48 Plt Count 205 Th/cmm (150-400) 07/04/18 10:48 MPV 9.7 fl 07/04/18 10:48 Neutrophils % 53.1 % (40.0-80.0) 07/04/18 10:48 Lymphocytes % 30.5 % (20.0-50.0) 07/04/18 10:48 Monocytes % 9.6 % (2.0-10.0) 07/04/18 10:48 Eosinophils % 5.9 % (0.0-5.0) H 07/04/18 10:48 Basophils % 0.9 % (0.0-2.0) 07/04/18 10:48 Sodium 136 mEq/L (136-145) 07/04/18 10:48 Potassium 4.1 mEq/L (3.5-5.1) 07/04/18 10:48 Chloride 106 mEq/L (98-107) 07/04/18 10:48 Carbon Dioxide 24.5 mEq/L (21.0-31.0) 07/04/18 10:48 Anion Gap 9.6 (7.0-16.0) 07/04/18 10:48 BUN 16 mg/dL (7-25) 07/04/18 10:48 Creatinine 0.7 mg/dL (0.7-1.3) 07/04/18 10:48 Est GFR ( Amer) TNP 07/04/18 10:48 Est GFR (Non-Af Amer) TNP 07/04/18 10:48 BUN/Creatinine Ratio 22.9 07/04/18 10:48 Glucose 103 mg/dL (70-105) 07/04/18 10:48 Calcium 10.4 mg/dL (8.6-10.3) H 07/04/18 10:48 Total Bilirubin 0.8 mg/dL (0.3-1.0) 07/04/18 10:48 AST 10 U/L (13-39) L 07/04/18 10:48 ALT 11 U/L (7-52) 07/04/18 10:48 Alkaline Phosphatase 51 U/L (34-104) 07/04/18 10:48 Troponin I < 0.01 ng/mL (0.01-0.05) L 07/04/18 10:48 Total Protein 6.4 gm/dL (6.0-8.3) 07/04/18 10:48 Albumin 3.6 gm/dL (4.2-5.5) L 07/04/18 10:48 Globulin 2.8 gm/dL 07/04/18 10:48 Albumin/Globulin Ratio 1.3 (1.0-1.8) 07/04/18 10:48 Triglycerides 74 mg/dL (<150) 07/04/18 10:48 Cholesterol 150 mg/dL (<200) 07/04/18 10:48 LDL Cholesterol Direct 85 mg/dL (75-193) 07/04/18 10:48 HDL Cholesterol 53 mg/dL (23-92) 07/04/18 10:48 TSH 2.23 uIU/ml (0.34-5.60) 07/04/18 10:48 Urine Source CLEAN C 07/04/18 10:30 Urine Color YELLOW 07/04/18 10:30 Urine Clarity CLEAR (CLEAR) 07/04/18 10:30 Urine pH 7.0 (4.6 - 8.0) 07/04/18 10:30 Ur Specific [place] 1.010 (1.005-1.030) 07/04/18 10:30 Urine Protein NEGATIVE mg/dL (NEGATIVE) 07/04/18 10:30 Urine Glucose (UA) NEGATIVE mg/dL (NEGATIVE) 07/04/18 10:30 Urine Ketones NEGATIVE mg/dL (NEGATIVE) 07/04/18 10:30 Urine Blood NEGATIVE (NEGATIVE) 07/04/18 10:30 Urine Nitrate NEGATIVE (NEGATIVE) 07/04/18 10:30 Urine Bilirubin NEGATIVE (NEGATIVE) 07/04/18 10:30 Urine Urobilinogen 0.2 E.U./dL (0.2 - 1.0) 07/04/18 10:30 Ur Leukocyte Esterase NEGATIVE (NEGATIVE) 07/04/18 10:30 Salicylates < 25.0 mg/L (30.0-100.0) L 07/04/18 10:48 Urine Opiates Screen NEGATIVE (NEGATIVE) 07/04/18 10:30 Urine Methadone Screen NEGATIVE (NEGATIVE) 07/04/18 10:30 Acetaminophen < 10.0 ug/mL (10.0-30.0) L 07/04/18 10:48 Ur Barbiturates Screen NEGATIVE (NEGATIVE) 07/04/18 10:30 Ur Tricyclics Screen POSITIVE (NEGATIVE) H 07/04/18 10:30 Ur Phencyclidine Scrn NEGATIVE (NEGATIVE) 07/04/18 10:30 Amphetamines Screen NEGATIVE (NEGATIVE) 07/04/18 10:30 U Methamphetamines Scrn NEGATIVE (NEGATIVE) 07/04/18 10:30 U Benzodiazepines Scrn NEGATIVE (NEGATIVE) 07/04/18 10:30 U Cocaine Metab Screen NEGATIVE (NEGATIVE) 07/04/18 10:30 U Cannabinoids Screen NEGATIVE (NEGATIVE) 07/04/18 10:30 Ethyl Alcohol < 10 mg/dL (0-10) 07/04/18 10:48 RPR NONREACTIVE (NONREACTIVE) 07/04/18 10:48 - Physical Exam Vitals and I&O: Vital Signs Temp 97.8 F 07/16/18 06:22 Pulse 77 07/16/18 06:22 Resp 19 07/16/18 06:22 BP 98/55 07/16/18 06:22 Pulse Ox 99 07/16/18 06:22 Intake & Output 07/15/18 07/16/1807/16/18 18:59 06:59 18:59 Intake Total 275 Balance 275 Intake: Oral 275 Other: # Voids 3 # Bowel Movements 0 Stool Characteristics Soft Active Medications: Current Medications Acetaminophen (Tylenol) 650 mg PO Q4HR PRN PRN Reason: Mild Pain / Temp above 100 Stop: 09/02/18 18:31 Acetaminophen (Tylenol) 650 mg PO Q4HR PRN PRN Reason: Pain (Mild) Stop: 09/03/18 12:01 Al Hydrox/Mg Hydrox/Simethicone (Maalox) 30 ml PO Q4HR PRN PRN Reason: GI DISTRESS Stop: 09/02/18 18:31 Atorvastatin Calcium (Lipitor) 10 mg PO DAILY CECILIA; Protocol Stop: 09/04/18 08:59 Last Admin: 07/16/18 09:33 Dose: 10 mg Divalproex Sodium (Depakote Dr) 250 mg PO Q12HR CECILIA; Protocol Stop: 09/05/18 20:59 Last Admin: 07/16/18 09:33 Dose: 250 mg Docusate Sodium (Colace) 100 mg PO BID PRN PRN Reason: Constipation Stop: 09/03/18 12:01 Finasteride (Proscar) 5 mg PO DAILY CECILIA; Protocol Stop: 09/04/18 08:59 Last Admin: 07/16/18 09:33 Dose: 5 mg Lorazepam (Ativan) 0.5 mg PO Q4HR PRN; Protocol PRN Reason: Agitation Stop: 08/03/18 18:31 Last Admin: 07/14/18 09:59 Dose: 0.5 mg Magnesium Hydroxide (Milk Of Magnesia) 30 ml PO HS PRN PRN Reason: Constipation Magnesium Hydroxide (Milk Of Magnesia) 30 ml PO HS PRN PRN Reason: Constipation Stop: 09/03/18 12:01 Multivitamins/Vitamin C (Theragran) 1 tab PO DAILY CECILIA Stop: 09/03/18 08:59 Last Admin: 07/16/18 09:33 Dose: 1 tab Quetiapine Fumarate (Seroquel) 50 mg PO HS CECILIA; Protocol Stop: 09/02/18 20:59 Last Admin: 07/15/18 20:25 Dose: 50 mg Rivastigmine (Exelon 4.6 Mg/24 Hr Tdm) 1 patch TD DAILY CECILIA Stop: 09/04/18 08:59 Last Admin: 07/16/18 09:33 Dose: 1 patch Tamsulosin HCl (Flomax) 0.4 mg PO HS CECILIA Stop: 09/03/18 20:59 Last Admin: 07/15/18 20:25 Dose: 0.4 mg Zolpidem Tartrate (Ambien) 5 mg PO HS PRN PRN Reason: Insomnia Stop: 09/02/18 18:31 Last Admin: 07/12/18 22:15 Dose: 5 mg General: weak HEENT: NC/AT, PERRLA Neck: Supple Lungs: CTAB Cardiovascular: RRR, Normal S1, Normal S2, with murmur Abdomen: soft, positive bowel sound Extremities: excoriation Neurological: no change Internal Medicine Assmt/Plan - Assessment Assessment: depression HTN Dyslipidemia - Plan Plan: fall precautions continue snf meds continue current plan of care Nutritional Asmnt/Malnutr-PDOC - Dietary Evaluation Malnutrition Findings (Please click <Entered> for more info): Nutritional Asmnt/Malnutrition Start: 07/10/18 10: 38 Text: Status: Complete Freq: Protocol: Document 07/10/18 13:30 LCHENG (Rec: 07/10/18 13:40 LCHENG [email or web address]) Nutritional Asmnt/Malnutrition Patient General Information Nutritional Screening Low Risk Diagnosis psychosis Pertinent Medical Hx/Surgical Hx HTN, dyslipidemia, depression, bipolar Subjective Information Pt seen sleeping in bed at time of visit. Per EMR, PO intake 50-75%. Current Diet Order/ Nutrition Support regular Pertinent Medications lipitor, colace, theragran, seroquel Pertinent Labs 07/04 glucose 103, Ca 10.4, Alb 3.6 Nutritional Hx/Data Height 6 ft Height (Calculated Centimeters) 182.9 Current Weight (lbs) 180 lb Weight (Calculated Kilograms) 81.6 Weight (Calculated Grams) 32859.6 [place] Body Weight 184 Body Mass Index (BMI) 24.4 Weight Status Approriate GI Symptoms GI Symptoms None Last BM 07/08 Difficult in: None Skin Integrity/Comment: dryness oriana score 20 Current %PO Fair (50-74%) Estimated Nutritional Goals BEE in Kcals: Using Current wt Calories/Kcals/Kg 25-30 Kcals Calculated 9730-0725 Protein: Using Current wt Protein g/k Protein Calculated 82 Fluid: ml 2049-2460ml (1ml/kcal) Nutritional Problem No current Nutrition Prob Problem N/A Malnutrition Alert Is there a minimum of two criteria No selected? Query Text:Check all the applicable criteria. A minimum of two criteria are recommended for diagnosis of either severe or non-severe malnutrition. Malnutrition Related to Morbid Obesity Malnutrition related to morbid obesity No Intervention/Recommendation Comments 1. Continue with regular diet as ordered. 2. Monitor PO intake, wt, labs and skin integrity 3. F/U as low risk in 7 days, 07/17, PO check 07/13 Expected Outcomes/Goals Expected Outcomes/Goals 1. PO intake to meet at least 75% of nutritional needs. 2. Wt stability, skin to remain intact, labs to approach WNL.
[2018-07-16] MEDS ORDERED: Haloperidol Lactate 5 mg/mL 1mL Vial IM ONE (16:32)
--- NOTE | 2018-07-17 00:14 | Progress Notes ---
DATE: 07/16/2018 SUBJECTIVE: Staff was spoken to. The patient is interviewed. Mood is noted to be irritable. Affect is constricted. The patient has ____ been screaming and yelling and is trying to take the phone and then threw it out. The patient is very impulsive and the patient has to be given a dose of Ativan first, which has not helped and then the patient has been placed on 2 mg of the Haldol IM. ASSESSMENT: The patient is still impulsive and psychotic. PLAN: To continue the patient with the supportive therapy, encouraged the patient to verbalize the concerns rather than to act out. JOB# [id number]
[2018-07-17] MEDS: Rivastigmine 4.6 mg/24 hr Tdm TD SCH (08:37)
[2018-07-17] MEDS: Atorvastatin Calcium 10 MG TAB PO SCH (08:38)
[2018-07-17] MEDS: Multivitamin Tab PO SCH (08:38)
--- NOTE | 2018-07-17 21:11 | Discharge Summary ---
DATE OF DISCHARGE: 07/17/2018 IDENTIFYING DATA: The patient is an 88-year-old resident of a shelter facility. JUSTIFICATION OF HOSPITALIZATION: The patient is admitted on voluntary basis for acute agitation, screaming, and yelling behavior. 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 AXIS II: None. AXIS III: Hypertension and dyslipidemia. HISTORY OF PRESENT ILLNESS: Please refer to the 07/04/2018 dictation done by me. Physical examination at the time of admission was requested to be done by Dr. Watters. Blood work done at the hospitalization has been reviewed and no major interventions were needed. HOSPITAL COURSE AND RESPONSE TO TREATMENT: The patient has been started on the ____ acid, which was given 250 mg twice a day and Seroquel was given 50 mg at bedtime. With these medications, the patient was observed and was noted to be doing fairly well and hence was discharged on 07/17/2018 with recommendation that he is going to be seeking treatment on an outpatient basis. MENTAL STATUS EXAMINATION: At the time of discharge, the patient's mood is noted to be anxious. Affect is appropriate. Not suicidal or homicidal. Insight and judgment are noted to be fair. Impulse control is also noted to be fair. DIAGNOSES AT THE TIME OF DISCHARGE: AXIS I: Dementia and behavioral change, secondary trait. IB: Psychotic disorder, not otherwise specified. AXIS II: None. AXIS III: Hypertension. AFTERCARE PLAN: The patient is discharged to the shelter facility for further followup by Dr. Mcneal. JOB# [id number]
== END 2018-07-17 16:30 | DRG 884 ==
LOC: ER 10:18 → GERO2 12:10 → GERO 07-05 18:28
DX: F03.91 Unspecified dementia, unspecified severity, with behavioral disturbance (principal); F29 Unspecified psychosis not due to a substance or known physiological condition; I10 Essential (primary) hypertension; E78.5 Hyperlipidemia, unspecified; F32.9 Major depressive disorder, single episode, unspecified; E83.52 Hypercalcemia; Z82.49 Family history of ischemic heart disease and other diseases of the circulatory system; Z79.899 Other long term (current) drug therapy
CPT/HCPCS: 36415-UA; 80053-TC; 80061-TC; 80307; 80320-TC; 80329-TC; 81003-TC; 83036-90; 84443-TC; 84484-TC; 85025-TC; 86592-TC; 93005; G0410; J1630; J2060; Z7610